=== PATIENT | female | born 1990 | race Caucasian/White ===

== ENCOUNTER → 2018-03-12 09:40 | Outpatient (CLI) | payer OTHER, MEDICAID, SELFPAY | PROVIDERS: Visit Provider Nurse Practitioner | DX: G56.03 Carpal tunnel syndrome, bilateral upper limbs (principal); M54.5 Low back pain; G89.29 Other chronic pain; F41.9 Anxiety disorder, unspecified; R20.2 Paresthesia of skin | CPT/HCPCS: 95886; 95911 ==

== ENCOUNTER 2018-07-15 11:47 | Emergency (ER) | payer OTHER, MEDICAID, SELFPAY ==
[2018-07-15 11:51] VITALS: BP 134/84; PULSE 101; RESP 20; TEMP 36.2; O2SAT 100
--- NOTE | 2018-07-15 14:53 | ED.SKABFB ---
HPI - Skin/Abscess/Foreign Bdy General Chief complaint: Skin/Abscess/Foreign Body Stated complaint: states lump left breast has ruptured Time Seen by Provider: 07/15/18 14:41 Source: patient Mode of arrival: ambulatory Limitations: no limitations History of Present Illness HPI narrative: Patient is otherwise healthy 28-year-old female here for evaluation of a lump under her left breast that has spontaneously drained. She states that she has felt the lump for the past couple weeks. She states that just over the past several days it has become painful. She is scheduled for an ultrasound later today ordered by her OB provider. She states that just within the past 24 hr the lump started to drain. No fevers. Has never had anything like this before. Related Data Home Medications Medication Instructions Recorded Confirmed buprenorphine 12 mg-naloxone 3 mg 1 film SL DAILY 07/10/18 07/15/18 sublingual film duloxetine 60 mg capsule,delayed 60 mg PO DAILY 07/10/18 07/15/18 release hydroxyzine pamoate 25 mg capsule 25 mg PO Q6-8H PRN 07/10/18 07/15/18 amoxicillin-pot clavulanate 1 tab PO BID 07/15/18 07/15/18 ibuprofen 1 tab PO Q4H PRN 07/15/18 07/15/18 naloxone [Narcan] 1 spray INTRANASAL DIRECTED 07/15/18 07/15/18 Allergies Allergy/AdvReac Type Severity Reaction Status Date / Time acetaminophen [From Vicodin] Allergy Mild BAD DREAMS Verified 07/10/18 13:40 hydrocodone [From Vicodin] Allergy Mild BAD DREAMS Verified 07/10/18 13:40 No Known Allergies Allergy Uncoded 01/28/18 12:13 Review of Systems Constitutional Denies fever(s) and Denies headache(s) ENT Ears, Nose, Mouth, and Throat: Denies headache(s) Cardiovascular Denies chest pain and Denies dyspnea Respiratory Denies dyspnea Gastrointestinal Gastrointestinal: Denies abdominal pain Integumentary/Breasts Comments: Draining lump under the left breast Neurologic Denies headache(s) [facility] Medical History Healthy adult (Acute) Surgical History No pertinent past surgical history (Acute) Social History Smoking Status: Current every day smoker Exam Initial Vital Signs Initial Vital Signs: Vital Signs Temperature 97.2 F L 07/15/18 11:51 Pulse Rate 101 H 07/15/18 11:51 Respiratory Rate 20 07/15/18 11:51 Blood Pressure 134/84 07/15/18 11:51 Pulse Oximetry 100 07/15/18 11:51 Const General: cooperative, healthy appearing, comfortable, well developed, well groomed and No acute distress Resp Effort & Inspection: normal respiratory effort Cardio Rate: regular rate Rhythm: regular rhythm Skin Other: Patient with a proximally 2 cm area of induration in the inferior aspect of the left breast at the inframammary fold. Has a 2 mm area of opening of the skin with drainage of serosanguineous material. No surrounding cellulitis. Neuro General: alert, awake and oriented x3 Extrem General: normal to inspection and capillary refill normal Psych Appearance: grossly normal and well kempt Course Vital Signs - 8 hr 07/15/18 11:51 07/15/18 15:03 Temperature 97.2 F L 98.3 F Pulse Rate 101 H 73 Respiratory Rate 20 16 Blood Pressure 134/84 116/69 Pulse Oximetry 100 98 MDM - Skin/Abscess/Foreign Bdy MDM Narrative Medical decision making narrative: Bedside ultrasound of the area does not show any drainable abscess. I do suspect that this was either a epidermal inclusion cyst or an abscess. It has spontaneously drained. I did not open the wound up any further. I informed the patient that she still could get the ultrasound later today if she wished however I stated that it probably would not show anything since it is already draining. I did inform her that this could be an epidermal inclusion cyst and that it may return. I informed her that if it was an abscess then drainage of the abscesses the treatment. She does not need any antibiotics for this. She was given return precautions. She expressed understanding and agreement with plan Discharge Plan Departure Patient Disposition: Home Clinical Impression: Breast lesion Discharge Date/Time: 07/15/18 15:03 Interventions: ED Discharge Assessment Last Done: 07/15/18 15:03 Activity Restrictions/Additional Instructions: It is up to you if you would like to continue with the ultrasound that she have scheduled for later today. The spot on the left breast is either an abscess or a cyst. It is draining which would be the treatment for both these issues. There was no indication to start to on antibiotics for this. I would recommend you follow-up with your OB doctor to discuss further treatment if needed. Prescriptions: No Action hydroxyzine pamoate 25 mg capsule 25 mg PO Q6-8H PRN (Reason: unknown) RF: 0 duloxetine 60 mg capsule,delayed release(DR/EC) 60 mg PO DAILY RF: 0 buprenorphine-naloxone [Suboxone] 12-3 mg film 1 film SL DAILY RF: 0 ibuprofen 800 mg tablet 1 tab PO Q4H PRN (Reason: pain) RF: 0 amoxicillin-pot clavulanate 875-125 mg tablet 1 tab PO BID RF: 0 naloxone [Narcan] 4 mg/actuation spray,non-aerosol 1 spray Intranasal DIRECTED RF: 0
[2018-07-15 15:03] VITALS: BP 116/69; PULSE 73; RESP 16; TEMP 36.8; O2SAT 98
== END 2018-07-15 15:03 | disposition home or self-care (01) ==
PROVIDERS: Emergency Provider Emergency Medicine; PCP Nurse Practitioner
DX: N64.9 Disorder of breast, unspecified (principal)
CPT/HCPCS: 99282

== ENCOUNTER → 2018-07-16 08:15 | Outpatient (CLI) | payer OTHER, MEDICAID, SELFPAY ==
--- NOTE | 2018-07-16 08:18 | DI.US.S_ITS ---
LIMITED ULTRASOUND OF LEFT BREAST: 07/16/2018 CLINICAL: Left breast lump with discoloration x 3 weeks. Draining for 1 day. No prior exams were available for comparison. Color flow and real-time ultrasound of the left breast 7 o'clock region were performed on the areas of interest. There is a 1.3 cm x 0.4 cm x 0.7 cm irregular cyst with an irregular internal wall within the skin of the left breast at 7 o'clock. This irregular cyst is hypoechoic with internal echoes. This correlates as palpated and with area of drainage. Color flow imaging demonstrates that there is no internal vascularity present. IMPRESSION: BENIGN There is no sonographic evidence of malignancy. The 1.3 cm x 0.4 cm x 0.7 cm irregular cyst within the skin of the left breast is consistent with a sebaceous cyst. Associated infection is not excluded. Recommend correlation with clinical exam and clinical followup to demonstrate resolution. This exam was interpreted at Station ID: [id number]. Electronically Signed By: Houston hernandez/:07/16/2018 08:56:59 letter sent: Clinical Evaluation Ultrasound BI-RADS: 2 Benign
== END ==
PROVIDERS: Family Provider Physician Assistant Medical; PCP Physician Assistant Medical; Visit Provider Nurse Practitioner Family
DX: N60.82 Other benign mammary dysplasias of left breast (principal)
CPT/HCPCS: 76642

== ENCOUNTER 2018-10-08 14:34 | Emergency (ER) | payer OTHER, MEDICAID, SELFPAY ==
[2018-10-08 14:47] VITALS: BP 125/88; PULSE 78; RESP 16; TEMP 36.7; O2SAT 100; BMI 24.1
--- NOTE | 2018-10-08 17:42 | ED_ITS ---
HPI - Recheck/Abnormal Lab/Rx <SANDOR Jackson - Last Filed: 10/08/18 21:04> General Chief Complaint: Recheck/Abnormal Lab/Rx Stated Complaint: major joint pains Time Seen by Provider: 10/08/18 16:23 Source: patient Mode of arrival: ambulatory Limitations: no limitations History of Present Illness HPI narrative: 28-year-old female with history of PTSD as everyday smoker here for complaint of a generalized joint pain over the past 6 months. She reports that she was seen for this by her primary care provider and was referred to Rheumatology as she states that her markers were elevated. She states that her primary care provider left the area and therefore rheumatology referral did not go through. She still has having pain into her joints. She states she has been prescribed Mobic for the discomfort. She reports that the Mobic helps at times for the discomfort. She denies any fevers or chills. No trauma to the joints area. She is ambulatory into the emergency room. She denies any stressors or relievers of her discomfort. She reports that she has got pain to her knees elbows and to her wrist and hands. Related Data Home Medications Medication Instructions Recorded Confirmed buprenorphine 12 mg-naloxone 3 mg 1 film SL DAILY 07/10/18 07/15/18 sublingual film duloxetine 60 mg capsule,delayed 60 mg PO DAILY 07/10/18 07/15/18 release hydroxyzine pamoate 25 mg capsule 25 mg PO Q6-8H PRN 07/10/18 07/15/18 amoxicillin-pot clavulanate 1 tab PO BID 07/15/18 07/15/18 ibuprofen 1 tab PO Q4H PRN 07/15/18 07/15/18 naloxone [Narcan] 1 spray INTRANASAL DIRECTED 07/15/18 07/15/18 Allergies Allergy/AdvReac Type Severity Reaction Status Date / Time acetaminophen [From Vicodin] Allergy Mild BAD DREAMS Verified 10/08/18 14:47 hydrocodone [From Vicodin] Allergy Mild BAD DREAMS Verified 10/08/18 14:47 Review of Systems <SANDOR Jackson - Last Filed: 10/08/18 21:04> Constitutional Denies chills, Denies fever(s), Denies lethargy and Denies weakness Eyes Denies change in vision, Denies eye discharge, Denies irritation and Denies loss of vision ENT Ears, Nose, Mouth, and Throat: Denies change in voice, Denies neck pain and Denies sore throat Cardiovascular Denies chest pain, Denies irregular heart rhythm, Denies lightheadedness, Denies palpitations, Denies dyspnea, Denies dyspnea on exertion and Denies orthopnea Respiratory Denies cough, Denies dyspnea, Denies dyspnea on exertion and Denies wheezing Gastrointestinal Gastrointestinal: Denies abdominal pain, Denies change in bowel habits, Denies diarrhea, Denies nausea and Denies vomiting Genitourinary Denies hematuria, Denies flank pain, Denies urinary incontinence and Denies urinary urgency Musculoskeletal Denies neck pain Comments: Generalized joint pain Integumentary/Breasts Denies pruritus, Denies erythema, Denies rash and Denies wounds Neurologic Denies confusion, Denies loss of vision and Denies weakness Psychiatric Denies anxiety, Denies confusion, Denies depression, Denies homicidal ideation and Denies suicidal ideation Endocrine Denies palpitations Hematologic/Lymphatic Denies easy bruising Allergic/Immunologic Denies wheezing Exam <SANDOR Jackson - Last Filed: 10/08/18 21:04> Initial Vital Signs Initial Vital Signs: Vital Signs Temperature 98.1 F 10/08/18 14:47 Pulse Rate 78 10/08/18 14:47 Respiratory Rate 16 10/08/18 14:47 Blood Pressure 125/88 10/08/18 14:47 Pulse Oximetry 100 10/08/18 14:47 Const General: cooperative and well developed Nutritional Appearance: well nourished Orientation: alert, awake, oriented x3 and not confused [facility] Mouth: oral mucosae normal and moist mucous membranes Eyes Conjunctivae: conjunctivae normal Sclera: sclerae normal Pupils: PERRL EOM: EOM intact bilaterally Resp Effort & Inspection: normal respiratory effort, able to speak in complete sentences, no respiratory distress and no use of accessory muscles Auscultation: clear to auscultation bilaterally, no rales, no rhonchi and no wheezes Cardio Rate: regular rate Rhythm: regular rhythm Heart Sounds: no click, no gallops, no murmurs and no rubs Pulses: normal peripheral pulses Skin General: no rashes or lesions noted, No jaundice and No petechiae Neuro General: alert, oriented x3, gait normal and no focal motor deficits Speech: speech normal Extrem Other: Full range of motion to all 4 extremities. No significant swelling into the major joints. No erythema. No increased warmth. Distal sensation is intact all 4 extremities. <Zen Trinidad DO - Last Filed: 10/08/18 21:54> Initial Vital Signs Initial Vital Signs: Vital Signs Temperature 98.1 F 10/08/18 14:47 Pulse Rate 78 10/08/18 14:47 Respiratory Rate 16 10/08/18 14:47 Blood Pressure 125/88 10/08/18 14:47 Pulse Oximetry 100 10/08/18 14:47 Course <SANDOR Jackson - Last Filed: 10/08/18 21:04> Vital Signs - 8 hr 10/08/18 14:47 10/08/18 17:45 Temperature 98.1 F Pulse Rate 78 82 Respiratory Rate 16 20 Blood Pressure 125/88 Blood Pressure [Left Arm] 127/79 Pulse Oximetry 100 100 <Zen Trinidad DO - Last Filed: 10/08/18 21:54> Vital Signs - 8 hr 10/08/18 14:47 10/08/18 17:45 Temperature 98.1 F Pulse Rate 78 82 Respiratory Rate 16 20 Blood Pressure 125/88 Blood Pressure [Left Arm] 127/79 Pulse Oximetry 100 100 MDM - Recheck/Abnormal Lab/Rx <SANDOR Jackson - Last Filed: 10/08/18 21:04> [facility] Narrative Medical decision making narrative: Due to chronic nature of a problem and patient's subjective report of elevated markers on her blood work and the past recommend that she follow up with Rheumatology for further evaluation as conservative therapy has not seem to have helped her. Will have her follow up with her primary care provider next week for re-evaluation and discussion for specialty referral. Continue using meloxicam as directed for discomfort. For any worsening symptoms return to the emergency room. Patient does not desire to have any blood work completed today Discharge Plan Departure Patient Disposition: Home Clinical Impression: Arthralgia Discharge Date/Time: 10/08/18 17:48 Interventions: ED Discharge Assessment Last Done: 10/08/18 17:48 Instructions: DI for Arthralgia Activity Restrictions/Additional Instructions: Due to chronic nature of a problem and recommend follow up with Rheumatology for further evaluation as conservative therapy has not helped. Follow up with her primary care provider next week for re-evaluation and discussion for specialty referral. Continue using meloxicam as directed for discomfort. For any worsening symptoms return to the emergency room. Patient does not desire to have any blood work completed today Prescriptions: No Action hydroxyzine pamoate 25 mg capsule 25 mg PO Q6-8H PRN (Reason: unknown) RF: 0 duloxetine 60 mg capsule,delayed release(DR/EC) 60 mg PO DAILY RF: 0 buprenorphine-naloxone [Suboxone] 12-3 mg film 1 film SL DAILY RF: 0 ibuprofen 800 mg tablet 1 tab PO Q4H PRN (Reason: pain) RF: 0 amoxicillin-pot clavulanate 875-125 mg tablet 1 tab PO BID RF: 0 naloxone [Narcan] 4 mg/actuation spray,non-aerosol 1 spray Intranasal DIRECTED RF: 0 Referrals: Gloria Sanchez ARNP [Primary Care Provider] - <Zen Trinidad DO - Last Filed: 10/08/18 21:54> Cosign ED Attending Starla Attestation: I was available for consultation during this patient's emergency department encounter
[2018-10-08 17:45] VITALS: BP 127/79; PULSE 82; RESP 20; O2SAT 100
== END 2018-10-08 17:48 | disposition home or self-care (01) ==
PROVIDERS: Emergency Provider Nurse Practitioner Family; PCP Nurse Practitioner
DX: M25.50 Pain in unspecified joint (principal)
CPT/HCPCS: 99282

== ENCOUNTER → 2018-11-25 10:12 | Outpatient (CLI) | payer OTHER, MEDICAID, SELFPAY | PROVIDERS: PCP Nurse Practitioner; Visit Provider Physician Assistant | DX: N89.8 Other specified noninflammatory disorders of vagina (principal) | CPT/HCPCS: 87210 ==

== ENCOUNTER 2018-11-29 08:24 | Emergency (ER) | payer OTHER, MEDICAID, SELFPAY ==
[2018-11-29] VITALS (13 sets, daily range): BP systolic 114–137; BP diastolic 63–83; PULSE 85–114; RESP 12–97; TEMP 36.6–36.7; O2SAT 16–98
--- NOTE | 2018-11-29 09:35 | DI.US.S_ITS ---
PROCEDURE: US PELVIC COMPLETE INDICATIONS: PELVIC PAIN POST REMOVAL OF RETAINED TAMPON TECHNIQUE: Real-time scanning was performed of the pelvic organs, with image documentation. Additional endovaginal scanning was necessary due to incomplete visualization of the adnexal and endometrial structures by transabdominal scanning. COMPARISON: None. FINDINGS: Transabdominal scanning: Limited scanning through the kidneys shows no hydronephrosis. No pathologic free abdominal or pelvic fluid. Endovaginal scanning: Uterus: Uterus is normal in size at 8.2 x 3.9 x 4.9 cm. appropriately positioned IUD Ovaries: Right ovary measures 4.6 x 1.4 x 2.6 cm and there is a 2.1 x 1.5 x 2.0 cm physiologic cyst or follicle. Left ovary measures 3.2 x 1.6 x 1.4 cm and is unremarkable IMPRESSION: Appropriately positioned IUD. Otherwise, unremarkable examination as above Dictated by: Charles Neil M.D. on 11/29/2018 at 11:42 Approved by: Charles Neil M.D. on 11/29/2018 at 11:44
--- NOTE | 2018-11-29 09:36 | ED_ITS ---
HPI - Abdominal Pain General Chief Complaint: Abdominal Pain Stated Complaint: STOMACH AND BACK PAIN,NOT ABLE TO URINATE Time Seen by Provider: 11/29/18 08:53 Source: patient Mode of arrival: ambulatory Limitations: no limitations History of Present Illness HPI narrative: This is a 28-year-old female comes to the ER with complaint of abdominal pain, fevers up to 102 F at home. Patient states the last couple days she has had increasing discomfort starting Friday continue yesterday. Patient states that she had some abdominal discomfort starting last 5 days she was seen on Friday. About 3 days afterwards her tampon fell out. She states it was a paced for probably 5 days. She had for on that was present. Her last menses was about a week and half ago. Patient states that she since then had increasing abdominal discomfort and flank pain bilaterally. She has been nauseated and vomiting overnight. She has not had any major issues with bowel movements. She has had some frequency and dysuria. She does have an IUD in place. She has had brownish vaginal discharge with and foul odor. Related Data Home Medications Medication Instructions Recorded Confirmed buprenorphine 12 mg-naloxone 3 mg 1 film SL DAILY 07/10/18 11/25/18 sublingual film ibuprofen 1 tab PO Q4H PRN 07/15/18 11/25/18 naloxone [Narcan] 1 spray INTRANASAL DIRECTED 07/15/18 11/25/18 meloxicam 15 mg tablet 15 mg PO DAILY 11/25/18 11/25/18 sertraline 100 mg tablet 200 mg PO DAILY 11/25/18 11/25/18 Previous Rx's Medication Instructions Recorded metronidazole 500 mg tablet 500 mg PO BID 7 Days #14 tab 11/25/18 doxycycline hyclate 100 mg PO BID #20 cap 11/29/18 metronidazole [Flagyl] 500 mg PO BID #28 tab 11/29/18 oxycodone-acetaminophen [Percocet] 1 tab PO Q4-6H PRN #10 tab 11/29/18 Allergies Allergy/AdvReac Type Severity Reaction Status Date / Time hydrocodone [From Vicodin] Allergy Mild BAD DREAMS Verified 11/29/18 08:36 Review of Systems Review of Systems ROS Unobtainable: All systems reviewed & are unremarkable except as noted in HPI and below Constitutional Reports chills, Reports fever(s), Denies lethargy and Denies weakness Gastrointestinal Gastrointestinal: Reports abdominal pain, Denies change in bowel habits, Denies constipation, Denies diarrhea, Reports nausea and Reports vomiting Genitourinary Reports as per HPI, Denies hematuria, Reports dysuria, Reports pelvic pain, Reports flank pain (Bilateral), Denies urinary incontinence, Reports urinary urgency, Reports vaginal discharge and Reports vaginal odor Integumentary/Breasts Denies rash Neurologic Denies weakness [facility] Medical History Healthy adult (Acute) Surgical History No pertinent past surgical history (Acute) Social History Smoking Status: Current every day smoker Social History Smoking Status: Current every day smoker alcohol intake: current substance use type: does not use Exam Narrative Exam Narrative: GENERAL: Alert and oriented x three, well-nourished, well- appearing female in moderate distress. HEENT: Head normocephalic, atraumatic, EOMI, pupils reactive, face symmetric, moist mucous membranes NECK: Supple, full range of motion CARDIOVASCULAR: Regular rate and rhythm without murmurs, rubs or gallops. RESPIRATORY: Breath sounds equal bilaterally, no wheezes rales or rhonchi. ABDOMEN: Soft, generalized tenderness. Normoactive bowel sounds all 4 quadrants. No guarding or rebound, rigidity, no mass. : Bilateral CVA tenderness. Female: external vaginal exam is normal, mild dark brown vaginal bleeding, thick brownish discharge, patient quite tender on speculum exam, positive cervical motion tenderness, patient has 1cm of ulceration that is whitish in discoloration on the cervix and 4-5 small punctate white spots, they do not appears raised or fluctuant, there is no bleeding from areas of ulceration noted, no drainage, mild adnexal tenderness, no mass. no enlarged uterus. Non- gravid. EXTREMITIES: Normal range of motion, no clubbing or edema. Neurovascularly intact NEUROLOGICAL: Cranial nerves II through XII grossly intact. Moving all extremities SKIN: Warm, dry, no petechiae, no rashes or lesions. Initial Vital Signs Initial Vital Signs: Vital Signs Temperature 97.9 F 11/29/18 08:33 Pulse Rate 110 H 11/29/18 08:33 Respiratory Rate 18 11/29/18 08:33 Blood Pressure 137/83 11/29/18 08:33 Pulse Oximetry 98 11/29/18 08:33 Course Orders Ordered: ED Orders 11/29/18 09:50 Blood Culture Stat Lactate (Lactic Acid) Stat 11/29/18 11:26 Urine Microscopic Stat 11/29/18 12:30 Chlamydia/Gonorrhea RNA (SWAB) Stat Genital Culture Stat Wet Prep Tric BV Venecia Stat Discontinued Medications Hydromorphone HCl (Dilaudid) 1 mg IV NOW ONE Stop: 11/29/18 12:29 Last Admin: 11/29/18 12:40 Dose: 1 mg Hydromorphone HCl (Dilaudid) 1 mg IV NOW ONE Stop: 11/29/18 14:25 Last Admin: 11/29/18 14:39 Dose: 1 mg Sodium Chloride (Normal Saline 0.9%) 1,000 mls @ 1,000 mls/hr IV BOLUS ONE Stop: 11/29/18 09:52 Last Infusion: 11/29/18 11:15 Dose: 0 mls/hr Admin: 11/29/18 09:42 Dose: 1,000 mls/hr Doxycycline Hyclate 100 mg/ (Sodium Chloride) 100 mls @ 100 mls/hr IV NOW ONE Stop: 11/29/18 12:30 Last Infusion: 11/29/18 15:32 Dose: 0 mls/hr Admin: 11/29/18 14:10 Dose: 100 mls/hr Cefotetan Disodium/Dextrose (Cefotan) 2 gm in 50 mls @ 100 mls/hr IV NOW ONE Stop: 11/29/18 12:58 Last Infusion: 11/29/18 14:08 Dose: 0 mls/hr Admin: 11/29/18 13:29 Dose: 100 mls/hr Ketorolac Tromethamine (Toradol) 30 mg IV NOW ONE Stop: 11/29/18 09:37 Last Admin: 11/29/18 09:43 Dose: 30 mg Morphine Sulfate (Morphine) 4 mg IV NOW ONE Stop: 11/29/18 11:30 Last Admin: 11/29/18 11:34 Dose: 4 mg Ondansetron HCl (Zofran) 4 mg IV NOW ONE Stop: 11/29/18 09:37 Last Admin: 11/29/18 09:43 Dose: 4 mg Vital Signs - 8 hr 11/29/18 11:00 11/29/18 11:34 11/29/18 12:09 Temperature 98.1 F 98.0 F Pulse Rate 97 H 96 H Respiratory Rate 12 Blood Pressure Blood Pressure [Right Arm] 128/78 119/75 Pulse Oximetry 98 97 11/29/18 12:30 11/29/18 13:00 11/29/18 13:30 Temperature Pulse Rate 100 H 92 H 94 H Respiratory Rate 15 17 16 Blood Pressure Blood Pressure [Right Arm] 126/69 Pulse Oximetry 97 96 97 11/29/18 14:00 11/29/18 14:30 11/29/18 15:00 Temperature Pulse Rate 92 H 95 H 114 H Respiratory Rate 13 97 H 19 Blood Pressure Blood Pressure [Right Arm] 114/63 127/80 127/80 Pulse Oximetry 97 16 L 98 11/29/18 15:53 Temperature Pulse Rate 91 H Respiratory Rate 16 Blood Pressure 127/80 Blood Pressure [Right Arm] Pulse Oximetry 98 MDM - Abdominal Pain Lab Data Result diagrams: 11/29/18 09:35 11/29/18 09:35 Lab Results 11/29/18 11/29/18 11/29/18 Range/Units 09:35 09:35 09:50 WBC 10.1 (4.5-11.0) X10^3/uL RBC 3.93 L (4.0-5.2) X10^6/uL Hgb 13.8 (12.0-16.0) g/dL Hct 39.5 (36-46) % MCV 100.6 H (80-100) fL MCH 35.1 H (26-34) PG MCHC 34.9 (30-36) % RDW 13.5 (11.6-14.8) % Plt Count 197 (150-400) X10^3/uL Neut % (Auto) 72.5 (50-75) % Lymph % (Auto) 17.3 L (25-40) % [place] % (Auto) 9.6 (3-14) % Eos % (Auto) 0.3 L (2-4) % Baso % (Auto) 0.3 (0-2) % Neut # (Auto) 7300 H (1143-5540) /uL Lymph # (Auto) 1800 (9471-6932) /uL [place] # (Auto) 1000 H (0-900) /uL Eos # (Auto) 0 (0-450) /uL Baso # (Auto) 0 (0-100) /uL Sodium 138 (137-145) mmol/L Potassium 3.7 (3.4-5.1) mmol/L Chloride 100 (98-107) mmol/L Carbon Dioxide 21 L (22-32) mmol/L BUN 5 L (7-17) mg/dL Creatinine 0.50 L (0.52-1.04) mg/dL Estimated GFR > 60.0 (>60) mL/min BUN/Creatinine Ratio 10.0 (6-22) Glucose 93 (70-100) mg/dL Lactate 0.5 L (0.7-2.1) mmol/L Calcium 8.9 (8.4-10.2) mg/dL Total Bilirubin 0.5 (0.2-1.3) mg/dL AST 45 H (14-36) IU/L ALT 66 H (9-52) IU/L Alkaline Phosphatase 103 (38-126) U/L Total Protein 7.6 (6.3-8.2) g/dL Albumin 4.2 (3.5-5.0) g/dL Globulin 3.4 (1.7-4.1) g/dL Albumin/Globulin Ratio 1.2 (1.0-2.8) Lipase 150 (23-300) U/L Urine RBC (0-5/HPF) Urine WBC (0-5/HPF) Ur Squamous Epith Cells Amorphous Sediment Urine Bacteria (None) Urine Mucus (Negative) Ur Culture Indicated? 11/29/18 Range/Units 11:26 WBC (4.5-11.0) X10^3/uL RBC (4.0-5.2) X10^6/uL Hgb (12.0-16.0) g/dL Hct (36-46) % MCV (80-100) fL MCH (26-34) PG MCHC (30-36) % RDW (11.6-14.8) % Plt Count (150-400) X10^3/uL Neut % (Auto) (50-75) % Lymph % (Auto) (25-40) % [place] % (Auto) (3-14) % Eos % (Auto) (2-4) % Baso % (Auto) (0-2) % Neut # (Auto) (1835-3832) /uL Lymph # (Auto) (0312-1913) /uL [place] # (Auto) (0-900) /uL Eos # (Auto) (0-450) /uL Baso # (Auto) (0-100) /uL Sodium (137-145) mmol/L Potassium (3.4-5.1) mmol/L Chloride (98-107) mmol/L Carbon Dioxide (22-32) mmol/L BUN (7-17) mg/dL Creatinine (0.52-1.04) mg/dL Estimated GFR (>60) mL/min BUN/Creatinine Ratio (6-22) Glucose (70-100) mg/dL Lactate (0.7-2.1) mmol/L Calcium (8.4-10.2) mg/dL Total Bilirubin (0.2-1.3) mg/dL AST (14-36) IU/L ALT (9-52) IU/L Alkaline Phosphatase (38-126) U/L Total Protein (6.3-8.2) g/dL Albumin (3.5-5.0) g/dL Globulin (1.7-4.1) g/dL Albumin/Globulin Ratio (1.0-2.8) Lipase (23-300) U/L Urine RBC 1-5/hpf (0-5/HPF) Urine WBC 0-1/hpf (0-5/HPF) Ur Squamous Epith Cells 5-10 /hpf H Amorphous Sediment 2+ Urine Bacteria Occasional (0-1) (None) Urine Mucus 1+ H (Negative) Ur Culture Indicated? Cult not indicated Point of care testing: Point of Care Testing Test Results Negative Urine Dip Bedside Urine Glucose Negative Bedside Urine Bilirubin - Negative Bedside Urine Ketone +++ 80 Urine Specific [place] 1.025 Bedside Urine Occult Blood +++ Bedside Urine pH 6.0 Bedside Urine Protein + 30 Bedside Urine Urobilinogen - Negative Bedside Urine Nitrite - Negative Bedside Urine Leukocytes - Negative Esterase MDM Narrative Medical decision making narrative: Recheck after medications, patient was improving. After pelvic US and exam patient is much more uncomfortable. Exam and labs discussed with Dr. Patel, recommends Flagyl oral if very tender intravaginally, follow up at end of week with office. Cultures sent today. After discussion with activated sludge operator on recheck patient is more comfortable she then mentioned she did have a LEEP procedure with Dr. Patel in the past and we discussed this may have been what I was visualizing on exam. Still continue to follow up with Dr. Patel, Terrance and Doxycycline and return if worsening. Discharge Plan Departure Patient Disposition: Home Clinical Impression: Acute pelvic inflammatory disease (PID), Cervical ulceration Discharge Date/Time: 11/29/18 15:58 Interventions: ED Discharge Assessment Last Done: 11/29/18 15:53 Instructions: DI for Pelvic Inflammatory Disease Activity Restrictions/Additional Instructions: Call to set up followup this week with FILM PRODUCER. Take antibiotics until they are completely gone. Do not drink alcohol while taking Flagyl/metronidazole, it will make you vomit. Take pain medication as needed, this medication can make you sleepy so do not drive, perform hazards activities or make any major decisions while taking it. Return to the ER for persistent fevers greater than 100.4, persistent vomiting, rapidly increasing abdominal pain, black or bloody stools, new rashes or other new or concerning symptoms. Prescriptions: New doxycycline hyclate 100 mg capsule 100 mg PO BID Qty: 20 RF: 0 metronidazole [Flagyl] 500 mg tablet 500 mg PO BID Qty: 28 RF: 0 oxycodone-acetaminophen [Percocet] 5-325 mg tablet 1 tab PO Q4-6H PRN (Reason: pain) Qty: 10 RF: 0 No Action sertraline 100 mg tablet 200 mg PO DAILY RF: 0 meloxicam 15 mg tablet 15 mg PO DAILY RF: 0 metronidazole 500 mg tablet 500 mg PO BID 7 Days Qty: 14 RF: 0 buprenorphine-naloxone [Suboxone] 12-3 mg film 1 film SL DAILY RF: 0 ibuprofen 800 mg tablet 1 tab PO Q4H PRN (Reason: pain) RF: 0 naloxone [Narcan] 4 mg/actuation spray,non-aerosol 1 spray Intranasal DIRECTED RF: 0 Referrals: Nina Patel MD [Physician] - Gloria Sanchez ARNP [Primary Care Provider] -
[2018-11-29 09:42] LABS: Add Manual Diff / Slide Review NO; Basophils Absolute Auto 0 /uL (0-100); Basophils Percent Auto 0.3 % (0-2); Eosinophils Absolute Auto 0 /uL (0-450); Eosinophils Percent Auto 0.3 % (2-4); Hematocrit 39.5 % (36-46); Hemoglobin 13.8 g/dL (12.0-16.0); Lymphocytes Absolute Auto 1800 /uL (1100-4500); Lymphocytes Percent Auto 17.3 % (25-40); Mean Corpuscular HGB Conc 34.9 % (30-36); Mean Corpuscular Hemoglobin 35.1 PG (26-34); Mean Corpuscular Volume 100.6 fL (80-100); Monocytes Absolute Auto 1000 /uL (0-900); Monocytes Percent Auto 9.6 % (3-14); Neutrophils Absolute Auto 7300 /uL (1500-7000); Neutrophils Percent Auto 72.5 % (50-75); Platelet Count 197 X10^3/uL (150-400); Red Blood Cell Count 3.93 X10^6/uL (4.0-5.2); Red Cell Distribution Width 13.5 % (11.6-14.8); White Blood Cell Count 10.1 X10^3/uL (4.5-11.0)
[2018-11-29] MEDS: SODIUM CHLORIDE 0.9% 1,000 ML 1000 ML IV (09:42)
[2018-11-29] MEDS: KETOROLAC 60 MG/2 ML VIAL 30 MG IV (09:43)
[2018-11-29] MEDS: ONDANSETRON 4 MG/2 ML INJ IV (09:43)
[2018-11-29 09:54] LABS: Alanine Aminotransferase 66 IU/L (9-52); Albumin 4.2 g/dL (3.5-5.0); Albumin Globulin Ratio 1.2 (1.0-2.8); Alkaline Phosphatase 103 U/L (38-126); Aspartate Aminotransferase 45 IU/L (14-36); Bilirubin Total 0.5 mg/dL (0.2-1.3); Blood Urea Nitrogen 5 mg/dL (7-17); Calcium 8.9 mg/dL (8.4-10.2); Carbon Dioxide 21 mmol/L (22-32); Chloride 100 mmol/L (98-107); Estimated Glomerular Filt Rate > 60.0 mL/min (>60); Globulin 3.4 g/dL (1.7-4.1); Glucose 93 mg/dL (70-100); HEMOLYSIS < 15 (0-50); Lipase 150 U/L (23-300); Potassium 3.7 mmol/L (3.4-5.1); Sodium 138 mmol/L (137-145); Total Protein 7.6 g/dL (6.3-8.2)
[2018-11-29 10:09] LABS: Lactate (Lactic Acid) 0.5 mmol/L (0.7-2.1)
[2018-11-29] MEDS: MORPHINE 4 MG/ML INJ IV (11:34)
[2018-11-29 11:56] LABS: RBC Urine 1-5/HPF (0-5/HPF); Squamous Epithelial Cell Urine 5-10 /HPF; WBC Urine 0-1/HPF (0-5/HPF)
[2018-11-29 11:57] LABS: Amorphous Sediment Urine 2+; Bacteria Urine Occasional (0-1); Culture Indicated Urine Cult Not Indicated; Mucus Urine 1+ (Negative)
--- NOTE | 2018-11-29 12:00 | PC.NURSE ---
Pt' states her last menstrual period was about 2 weeks ago, last week on 11/25/18 she began experiencing symptoms: fevers, intermittent nausea and vomiting, abdominal pain, brown-red vaginal discharge, difficulty and burning when urinating, and pain during intercourse. On 11/27/18 she coughed and the tampon came out which she had forgotten for unknown length of time possibly over a week and a half. She went to see her PCP on 11/26/18 where she was prescribed an antibiotic gel for a vaginal infection, she used it all with no relief. She does have a new sexual partner and is concerned about STD's, denies , and states she uses a Mirena IUD. Pain is located in central abdomen and vaginally, some relief with a warm compress.
[2018-11-29] MEDS: HYDROMORPHONE 1 MG INJ IV ×2 (12:40→14:39)
[2018-11-29] MEDS: CEFOTETAN 2 GM/50 ML PIGGYBACK IV (13:29)
[2018-11-29] MEDS: DOXYCYCLINE 100 MG in SODIUM CHLORIDE 0.9% 100 ML IV (14:10)
--- NOTE | 2018-11-29 15:43 | PC.NURSE ---
I agree with all assessments and treatments completed by the Student nurse.
== END 2018-11-29 15:58 | disposition home or self-care (01) ==
PROVIDERS: Emergency Provider Emergency Medicine; PCP Nurse Practitioner
DX: R10.9 Unspecified abdominal pain (principal)
CPT/HCPCS: 36415; 36591; 76830; 76856; 80053; 81003; 81015; 81025; 83605; 83690; 85025; 87040; 87070; 87077; 87147; 87205; 87210; 87491; 87591; 99285; J1170; J1885; J2270; J2405

== ENCOUNTER → 2018-11-30 10:03 | Outpatient (CLI) | payer OTHER, MEDICAID, SELFPAY | PROVIDERS: PCP Nurse Practitioner; Visit Provider Specialist | DX: N73.0 Acute parametritis and pelvic cellulitis (principal) | CPT/HCPCS: 87255 ==

== ENCOUNTER 2018-11-30 10:23 | Inpatient (IN) | payer OTHER, MEDICAID, SELFPAY ==
[2018-11-30 10:55] VITALS: BMI 20.8
[2018-11-30 11:50] VITALS: BP 139/88; PULSE 82; RESP 18; TEMP 36.7; O2SAT 99
[2018-11-30] MEDS: DEXTROSE 5%-0.9% NS 1,000 ML 100 ML IV ×2 (11:52→22:18)
[2018-11-30 11:55] LABS: Add Manual Diff / Slide Review NO; Basophils Absolute Auto 100 /uL (0-100); Basophils Percent Auto 0.6 % (0-2); Eosinophils Absolute Auto 100 /uL (0-450); Eosinophils Percent Auto 0.5 % (2-4); Hemoglobin 13.1 g/dL (12.0-16.0); Lymphocytes Absolute Auto 2000 /uL (1100-4500); Mean Corpuscular HGB Conc 36.5 % (30-36); Mean Corpuscular Hemoglobin 35.2 PG (26-34); Mean Corpuscular Volume 96.5 fL (80-100); Monocytes Absolute Auto 800 /uL (0-900); Monocytes Percent Auto 8.1 % (3-14); Neutrophils Absolute Auto 6800 /uL (1500-7000); Neutrophils Percent Auto 69.8 % (50-75); Platelet Count 234 X10^3/uL (150-400); Red Blood Cell Count 3.73 X10^6/uL (4.0-5.2); Red Cell Distribution Width 13.2 % (11.6-14.8); White Blood Cell Count 9.7 X10^3/uL (4.5-11.0)
[2018-11-30] MEDS: ONDANSETRON 4 MG/2 ML INJ IV (11:55)
[2018-11-30] MEDS: HYDROMORPHONE 1 MG INJ IV (11:59)
[2018-11-30] MEDS: PENICILLIN G POTASSIUM 3,000,000 UNIT/50 ML FROZ.PIGGY 100 UNIT IV ×3 (12:17→22:04)
--- NOTE | 2018-11-30 12:54 | PC.NURSE ---
Addendum entered by Jessie Lombardi R.N. 11/30/18 13:03: PT OWN MEDS - gathered pt own meds and sent to pharmacy. Original Note: ADMISSION - arrived as direct admit, pt is clutching lower abd, tearful, states pain 8-10/10, oriented to room, pt did experience onset nausea and had emesis approx 50ml pale green fluid, when iv started, admin 4mg iv zofran and then 1mg iv dilaudid, was given warm blankets for lower abd, nausea did improve, states pain continues 6 on scale 0/10.
--- NOTE | 2018-11-30 13:00 | PM.GYNHP.1 ---
History of Present Illness Reason for admission: pelvic inflammatory disease Narrative: Radha Kaba is a 28 year old female admitted for possible PID. Patient was seen at the walk-in clinic on 11/25 and in the emergency room on 11/28. She is having increasing abdominal pain unrelieved by medications and outpatient antibiotics. [facility] Social History household members: none Smoking Status: Current every day smoker alcohol intake: current substance use type: does not use Meds Home Medications Medication Instructions Recorded Confirmed Type buprenorphine 12 mg-naloxone 3 mg 1 film SL DAILY 07/10/18 11/30/18 History sublingual film ibuprofen 1 tab PO Q4H PRN 07/15/18 11/30/18 History naloxone [Narcan] 1 spray INTRANASAL DIRECTED 07/15/18 11/30/18 History meloxicam 15 mg tablet 15 mg PO DAILY 11/25/18 11/30/18 History sertraline 100 mg tablet 200 mg PO DAILY 11/25/18 11/30/18 History doxycycline hyclate 100 mg PO BID #20 cap 11/29/18 11/30/18 Rx metronidazole [Flagyl] 500 mg PO BID #28 tab 11/29/18 11/30/18 Rx oxycodone-acetaminophen [Percocet] 1 tab PO Q4HR PRN 11/30/18 11/30/18 History Allergies Allergy/AdvReac Type Severity Reaction Status Date / Time hydrocodone [From Vicodin] Allergy Mild BAD DREAMS Verified 11/30/18 09:56 Review of Systems Review of Systems Patient complaining of increasing abdominal pain, pain with urinating, extreme pain with bowel movements, nausea and vomiting. Exam Narrative Exam Narrative: HEENT exam within normal limits. Lungs are clear to auscultation percussion. Heart is regular rate and rhythm no S3-S4 or murmurs. Abdomen is soft with tenderness throughout the abdomen. Patient has pustular lesions on her vulva. Speculum exam has a bloody pus appearing discharge. She has lesions on her cervix with a culture done to rule out possible herpes. Patient's IUD strings were grasped and the IUD removed. Patient does not have any uterine enlargement. No adnexal masses. But tenderness with palpation. Extremities without edema and nontender Objective Labs Result Diagrams: 11/30/18 11:20 Labs: Laboratory Results - last 24 hr 02/11/19 11:20 WBC 9.7 RBC 3.73 L Hgb 13.1 Hct 36.0 MCV 96.5 D MCH 35.2 H MCHC 36.5 H RDW 13.2 Plt Count 234 Neut % (Auto) 69.8 Lymph % (Auto) 21.0 L [place] % (Auto) 8.1 Eos % (Auto) 0.5 L Baso % (Auto) 0.6 Neut # (Auto) 6800 Lymph # (Auto) 2000 [place] # (Auto) 800 Eos # (Auto) 100 Baso # (Auto) 100 Assessment & Plan Assessment Narrative: Patient with worsening abdominal pain and vaginal lesions despite outpatient antibiotics. Possibility of PID. Patient's IUD was removed. GC and chlamydia cultures are pending. She has a large the growth of group B strep from her vagina. She had a wet prep on 11/25 that did not reveal any yeast or Trichomonas and small number of clue cells. Symptoms started after patient inadvertently left a tampon in place for 5 days. It is possible the patient has HSV. Patient was on Suboxone until 2 days ago. This likely is affecting her ability to deal with pain. Plan Narrative: Patient was admitted for IV fluids, IV antibiotics, IV pain medicine. Will start on acyclovir. Continue sertraline. Quality VTE Deep Vein Thrombosis/Pulmonary Embolism Present on Admission: No
[2018-11-30] MEDS: ACETAMINOPHEN 325 MG TABLET 650 MG PO ×2 (13:27→19:56)
[2018-11-30] MEDS: ACYCLOVIR 400 MG TABLET 800 MG PO ×3 (13:50→22:07)
[2018-11-30 15:15] VITALS: BP 151/92; PULSE 78; RESP 18; TEMP 36.9; O2SAT 99
[2018-11-30 17:00] VITALS: O2SAT 97
[2018-11-30] MEDS: LIDOCAINE JELLY 2% 5 ML 1 APPLIC TOP (17:00)
[2018-11-30] MEDS: IBUPROFEN 600 MG TABLET PO (18:43)
[2018-11-30 19:45] VITALS: BP 126/87; PULSE 88; RESP 18; TEMP 36.7; O2SAT 98
[2018-11-30] MEDS: SERTRALINE 50 MG TABLET 200 MG PO (22:05)
[2018-11-30] MEDS: DOXYCYCLINE HYCLATE 100 MG TABLET PO (22:06)
[2018-11-30] MEDS: metroNIDAZOLE 500 MG TABLET PO (22:07)
[2018-11-30] MEDS: diphenhydrAMINE 25 MG TABLET PO (22:07)
[2018-11-30] MEDS: HYDROMORPHONE PCA (6MG/30ML) 6 MG/30 ML PCA.VIAL IV (22:08)
[2018-11-30 23:30] VITALS: BP 114/69; PULSE 83; RESP 16; TEMP 36.6; O2SAT 96
[2018-11-30 23:45] VITALS: O2SAT 96
[2018-12-01] VITALS (8 sets, daily range): BP systolic 120–129; BP diastolic 72–87; PULSE 69–87; RESP 16; TEMP 36.4–36.7; O2SAT 94–98
[2018-12-01] MEDS: IBUPROFEN 600 MG TABLET PO ×4 (00:41→18:14)
[2018-12-01] MEDS: PENICILLIN G POTASSIUM 3,000,000 UNIT/50 ML FROZ.PIGGY 100 UNIT IV ×5 (04:41→20:11)
--- NOTE | 2018-12-01 04:51 | PC.NURSE ---
Shift Note: Pt missed scheduled dose of Penicillin G despite documentation per DEC. 2200 dose was scanned and hung but IV pump was not initiated. Found by fast food shift supervisor when initiating next schedule dose. Nurse Coordinator Natalya notified of situation. Will notify provider in AM.
[2018-12-01] MEDS: ACYCLOVIR 400 MG TABLET 800 MG PO ×5 (05:47→21:57)
--- NOTE | 2018-12-01 08:06 | PC.NURSE ---
Addendum entered by Jessie Lombardi R.N. 12/01/18 10:54: GI - placed nicotine patch, pt did not eat much breakfast, some underlying nausea, jennifer few sips, declines an antiemetic at this time. Original Note: Addendum entered by Jessie Lombardi R.N. 12/01/18 10:08: AMBULATION - pt req ambul, then stated wanted to go downstairs, on further questioning, states wanted to go out to smoke, informed pt of no smoking policy and that she cannot leave the 2nd floor, as she has district ranger, if she tries to leave floor, iv will be removed and pt discharged ama, she did agree to a nicotine patch and call placed to in for Dr. Patel today, the nurse will req order. Original Note: AM NOTE - lying bed, states some headache discomfort, discussed medications and ice pack applied head, lower abd and vaginal discomfort 4-5 on scale 0/10, describes vag burning discomfort, does have lidocaine gel, provides some relief, using district ranger dilaudid 0.2/10/6mg, does have menses, has pads and wipes for pericare, enc oob later am to chair.
[2018-12-01] MEDS: DEXTROSE 5%-0.9% NS 1,000 ML 100 ML IV ×2 (08:12→20:08)
[2018-12-01] MEDS: DOXYCYCLINE HYCLATE 100 MG TABLET PO ×2 (08:13→21:58)
[2018-12-01] MEDS: ACETAMINOPHEN 325 MG TABLET 650 MG PO ×3 (08:13→22:03)
[2018-12-01] MEDS: metroNIDAZOLE 500 MG TABLET PO ×2 (08:14→21:58)
[2018-12-01] MEDS: NICOTINE 14 PATCH 14 MG TOP (10:47)
--- NOTE | 2018-12-01 11:16 | P.PN_ITS ---
Subjective Date Patient Seen: 12/01/18 Time Patient Seen: 11:14 Interval history: Patient is hospital day number two for possible pelvic inflammatory disease. Patient states her nausea is better but she still has some. The pain is somewhat improved. She overall feels better because she did get some sleep last night. She still has burning when she urinates and and wipes. The xylocaine did not help with her discomfort. Exam Vital Signs (past 8 hours): - 12/01/18 04:40 12/01/18 07:55 12/01/18 09:23 Temperature 97.9 F 97.6 F Pulse Rate 76 69 Respiratory Rate 16 16 Blood Pressure 129/72 127/73 Pulse Oximetry 98 97 95 Oxygen Delivery Method Room Air Oxygen Flow Rate 0 Narrative Exam Narrative: Patient's abdomen is soft but continues to be tender. Extremities without edema and nontender. Objective Labs Result Diagrams: 11/30/18 11:20 Labs: Laboratory Results - last 24 hr 11/30/18 11:20 WBC 9.7 RBC 3.73 L Hgb 13.1 Hct 36.0 MCV 96.5 D MCH 35.2 H MCHC 36.5 H RDW 13.2 Plt Count 234 Neut % (Auto) 69.8 Lymph % (Auto) 21.0 L [place] % (Auto) 8.1 Eos % (Auto) 0.5 L Baso % (Auto) 0.6 Neut # (Auto) 6800 Lymph # (Auto) 2000 [place] # (Auto) 800 Eos # (Auto) 100 Baso # (Auto) 100 Assessment & Plan Assessment Narrative: Patient with abdominal pain and vulvar and vaginal lesions requiring IV antibiotics and pain medicine. Unclear she has PID, primary herpes or just severe vaginitis. Patient has remained afebrile so far and a normal white count. Plan Narrative: Awaiting cultures. Continue IV penicillin an oral metronidazole and doxycycline as well as acyclovir. Hopefully switch to oral meds tomorrow at with home later tomorrow. Quality VTE Deep Vein Thrombosis/Pulmonary Embolism Present on Admission: No
[2018-12-01] MEDS: ONDANSETRON 4 MG/2 ML INJ IV (12:28)
[2018-12-01] MEDS: HYDROMORPHONE PCA (6MG/30ML) 6 MG/30 ML PCA.VIAL 32 MG IV (13:52)
[2018-12-01] MEDS: LIDOCAINE JELLY 2% 5 ML 1 APPLIC TOP (14:18)
[2018-12-01] MEDS: HYDROMORPHONE PCA (6MG/30ML) 6 MG/30 ML PCA.VIAL IV (20:30)
[2018-12-01] MEDS: SERTRALINE 50 MG TABLET 200 MG PO (21:58)
[2018-12-01] MEDS: diphenhydrAMINE 25 MG TABLET PO (21:59)
--- NOTE | 2018-12-01 23:06 | PC.NURSE ---
Addendum entered by Brittani Jimenez R.N. 12/02/18 01:20: 2300- pt used 7.6 mg on nelson shift of RN LPN CNA Original Note: 1500- assumed care of pt from outgoing shift. Pt awake and alert. Pt complains her IV is hurting a bit. checked this was ok. Pt has RN LPN CNA going. Pt states this helps with the pain for a while. Pt reports having a bad headache and given prns for this. Pt requests higher doses of RN LPN CNA. paged and refused. updated pt. Pt uses call light. went for a walk with me and did well. Pt reports that her hips and back hurt still so sat down after one loop around [facility] nurse station. scds discussed and pt states that she is ok to wear them. will apply then when pt goes to bed. Pt uses br. up ambulatory in room. came in for a bit and stayed with pt. pt threw up when dinner came. pt didn't want much else after that. Pt given toast and cranberry juice later on in the shift and some apple sauce. did ok with this. Pt reports that she is bleeding. and is worried that she is bleeding while she pees. discussed this with nicki. pt has pad on. and goes through 3 a day about. pt stated she started bleeding about 5 days ago. and it has gotten a big heavier since then. Pt calls and waits for assistance. will continue to monitor.
[2018-12-02] VITALS (9 sets, daily range): BP systolic 117–145; BP diastolic 76–100; PULSE 74–83; RESP 14–16; TEMP 36.6–37.1; O2SAT 94–100
[2018-12-02] MEDS: IBUPROFEN 600 MG TABLET PO ×4 (00:31→17:49)
[2018-12-02] MEDS: PENICILLIN G POTASSIUM 3,000,000 UNIT/50 ML FROZ.PIGGY 100 UNIT IV (00:32)
[2018-12-02] MEDS: HYDROMORPHONE PCA (6MG/30ML) 6 MG/30 ML PCA.VIAL IV ×2 (02:52→08:51)
[2018-12-02] MEDS: PENICILLIN G POTASSIUM 3,000,000 UNIT/50 ML FROZ.PIGGY 50 UNIT IV (04:58)
[2018-12-02] MEDS: ACETAMINOPHEN 325 MG TABLET 650 MG PO (05:59)
[2018-12-02] MEDS: ACYCLOVIR 400 MG TABLET 800 MG PO ×5 (06:44→21:20)
--- NOTE | 2018-12-02 08:45 | PC.NURSE ---
0300 Assumed care of Pt, denies nausea at present. Reports professor of environmental studies is not enough for pain control. Pt appears to have c/o m/skel pain. Discussed transition to PO pain control. Pt doesnt care for this POC and would like to speak with Dr in AM. Reassured. Stretching and ambulation encouraged. Up to BR. Warm compress provided.
--- NOTE | 2018-12-02 08:53 | PC.NURSE ---
Addendum entered by Serena Gale R.N. 12/02/18 14:42: Pt reporting that pain remains uncontrolled. Education provided about expected pain with substance abuse Hx Pt is frustrated by this response. DR Patel into see Pt and gave same update Original Note: Addendum entered by Serena Gale R.N. 12/02/18 10:14: Pt has started PO Percocet and SCHOOL TRANSPORTATION DIRECTOR d/cd shortly after. Will monitor for pain control status. Original Note: 0600 SCHOOL TRANSPORTATION DIRECTOR cleared for 6.9 mg of Dilaudid. MAR shows order d/c'd. Clarification with Dr Patel, switching to PO pain control in hopes of d/c planning.
[2018-12-02] MEDS: NICOTINE 14 PATCH 14 MG TOP (09:00)
[2018-12-02] MEDS: OXYCODONE/ACETAMINOPHEN 5/325 TABLET 2 TAB PO ×2 (09:36→13:29)
[2018-12-02] MEDS: metroNIDAZOLE 500 MG TABLET PO ×2 (12:37→21:19)
[2018-12-02] MEDS: DOXYCYCLINE HYCLATE 100 MG TABLET PO ×2 (12:37→21:19)
--- NOTE | 2018-12-02 14:27 | PM.PN.1 ---
Subjective Date Patient Seen: 12/02/18 Time Patient Seen: 14:27 Interval history: Possible pelvic inflammatory disease. Patient states she is not doing as well today as she did yesterday. She has more pain and has had to take nausea medication. She is complaining of bleeding when she urinates and when she had a bowel movement. However she did have her IUD removed on Friday so not unusual to have bleeding now post IUD removal. Patient had a urine tested on the in the emergency room and did not have evidence of infection. Patient does not feel she can go home today. Exam Vital Signs (past 8 hours): - 12/02/18 07:00 12/02/18 08:00 12/02/18 11:50 Temperature 97.9 F 98 F Pulse Rate 79 81 Respiratory Rate 16 16 Blood Pressure 118/76 131/77 Pulse Oximetry 96 99 98 Oxygen Delivery Method Room Air Oxygen Flow Rate 0 Narrative Exam Narrative: Patient's abdomen is soft with continued tenderness to palpation without rebound. Her vulva is improved without evidence of the prior pustules. Extremities without edema nontender. Objective Labs Result Diagrams: 11/30/18 11:20 Assessment & Plan Assessment & Plan narrative: Severe abdominal pain with possible PID. Cultures are still pending. Patient switched off of IV fluids and IV antibiotics. She is on oral medications but continues with nausea and pain. Will discharge in a.m. unless her symptoms worsen. Quality VTE Deep Vein Thrombosis/Pulmonary Embolism Present on Admission: No
--- NOTE | 2018-12-02 16:49 | PC.NURSE ---
pain upon physical assessment at 1620 pt states pain 8/10 to lower abdomen. reviewed pt's pain medication schedule with her. warm compress provided for comfort. non-verbal cues indicate 2/10 with palpation. no bleeding seen on thomas-pad (pt states was changed this AM). tolerating PO intake. per pt's request, above information relayed to via telephone. No new orders. will continue with PRN medication as per DEC.
[2018-12-02] MEDS: HYDROMORPHONE 2 MG TABLET 4 MG PO ×2 (17:08→21:18)
[2018-12-02] MEDS: ONDANSETRON 4 MG ODT SL (18:03)
[2018-12-02] MEDS: SERTRALINE 50 MG TABLET 200 MG PO (21:19)
[2018-12-02] MEDS: diphenhydrAMINE 25 MG TABLET PO (21:50)
[2018-12-03] MEDS: IBUPROFEN 600 MG TABLET PO ×2 (00:16→05:47)
[2018-12-03 00:25] VITALS: BP 142/85; PULSE 64; RESP 20; TEMP 36.6; O2SAT 98
[2018-12-03] MEDS: ONDANSETRON 4 MG ODT SL ×2 (00:27→11:35)
[2018-12-03 00:32] VITALS: O2SAT 98
--- NOTE | 2018-12-03 00:38 | PC.NURSE ---
Addendum entered by Mely Walton R.N. 12/03/18 05:51: Has slept most of shift. States pain is 5/10 this morning and, again, being very dramatic in actions/sounds when staff in room. Medicated with scheduled Motrin and warm blanket provided to abdomen for comfort. Original Note: Addendum entered by Mely Walton R.N. 12/03/18 01:45: States pain in lower abdomen is currently 7/10; medicated with Dilaudid. Up to bathroom and had small amount yellow/green liquids stool. Original Note: Patient sleeping at shift changed and now awakened for scheduled Motrin. Prior to waking was lying quietly with FLACC of 0. Once wakened became very dramatic, complaining of lower abdominal pain, nausea and just don't feel good. Is alert and oriented. Breath sounds CTA with RA sat of 98%. HRR with BP mildly elevated at 142/85. Medicated with SL Zofran for nausea; no emesis. BT present and abdomen is soft but states pain is 5/10; given scheduled Motrin and warm blanket applied for comfort. States she has dysuria; urine is clear yellow. Pustular vulvar lesions. Independent with mobility. Agreeable to having SCD's applied. Fall risk score is moderate.
[2018-12-03] MEDS: HYDROMORPHONE 2 MG TABLET 4 MG PO ×3 (01:44→11:34)
[2018-12-03 05:06] VITALS: BP 138/79; PULSE 56; RESP 20; TEMP 36.8; O2SAT 100
[2018-12-03] MEDS: ACYCLOVIR 400 MG TABLET 800 MG PO ×2 (05:46→11:06)
[2018-12-03 05:52] LABS: Add Manual Diff / Slide Review NO; Basophils Absolute Auto 100 /uL (0-100); Basophils Percent Auto 0.4 % (0-2); Eosinophils Absolute Auto 0 /uL (0-450); Eosinophils Percent Auto 0.2 % (2-4); Hematocrit 37.3 % (36-46); Lymphocytes Absolute Auto 3000 /uL (1100-4500); Lymphocytes Percent Auto 23.8 % (25-40); Mean Corpuscular HGB Conc 34.9 % (30-36); Mean Corpuscular Hemoglobin 34.5 PG (26-34); Mean Corpuscular Volume 99.1 fL (80-100); Monocytes Absolute Auto 800 /uL (0-900); Monocytes Percent Auto 6.1 % (3-14); Neutrophils Absolute Auto 8900 /uL (1500-7000); Neutrophils Percent Auto 69.5 % (50-75); Platelet Count 395 X10^3/uL (150-400); Red Blood Cell Count 3.76 X10^6/uL (4.0-5.2); Red Cell Distribution Width 13.1 % (11.6-14.8); White Blood Cell Count 12.8 X10^3/uL (4.5-11.0)
[2018-12-03 06:02] LABS: Alanine Aminotransferase 43 IU/L (9-52); Albumin 3.6 g/dL (3.5-5.0); Albumin Globulin Ratio 1.1 (1.0-2.8); Alkaline Phosphatase 80 U/L (38-126); Aspartate Aminotransferase 30 IU/L (14-36); Bilirubin Total 0.4 mg/dL (0.2-1.3); Blood Urea Nitrogen 6 mg/dL (7-17); Carbon Dioxide 28 mmol/L (22-32); Chloride 98 mmol/L (98-107); Estimated Glomerular Filt Rate > 60.0 mL/min (>60); Globulin 3.2 g/dL (1.7-4.1); Glucose 129 mg/dL (70-100); HEMOLYSIS < 15 (0-50); Potassium 3.4 mmol/L (3.4-5.1); Sodium 136 mmol/L (137-145); Total Protein 6.8 g/dL (6.3-8.2)
[2018-12-03 07:57] VITALS: BP 131/79; PULSE 61; RESP 16; TEMP 36.7; O2SAT 99
--- NOTE | 2018-12-03 08:02 | P.DS_ITS ---
History of Present Illness Date Patient Seen: 12/03/18 Time Patient Seen: 07:54 Chief complaint: Abdominal and vaginal pain Narrative: Patient was admitted for IV antibiotics and pain control for abdominal and vaginal pain, possible PID. Also possibility of primary herpes infection. Discharge Providers Date of admission: 11/30/18 10:23 Primary care physician: SANDOR Clarke Discharge provider: Nina Patel MD Discharge Date: 12/03/18 Summary Discharge Diagnosis: Pelvic inflammatory disease Hospital Course: Patient was admitted for IV antibiotics and pain control for abdominal and vaginal pain possible PID. Also possibility of primary herpes infection. The patients only culture returns so far was a vaginal culture for group B strep. GC and Chlamydia as well as herpes cultures are pending. Since admission the patient has had no fevers. Her white count was normal 1st 2 draws slightly elevated at 12.8 today. 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 Patient did not feel she did well with Percocet oral so switched to p.o. Dilaudid which she said worked better for her. Patient continues to have abdominal pain. She has had bowel movements. She has had vaginal bleeding but she had her IUD removed on 11/30/2018 so most likely responsible for this. Patient will be discharged home to continue her antibiotics orally. Will change treatment if her cultures come back requiring a change in antibiotics. Exam Vital Signs (past 8 hours): - 12/03/18 00:25 12/03/18 00:32 12/03/18 05:06 Temperature 97.8 F 98.2 F Pulse Rate 64 56 L Respiratory Rate 20 20 Blood Pressure 142/85 H 138/79 Pulse Oximetry 98 98 100 Oxygen Delivery Method Room Air Oxygen Flow Rate 0 Narrative Exam Narrative: Patient's abdomen is soft, with continued mild tenderness. The patient's vulva the pustules prior seen have mostly resolved. Vaginal exam was not performed. Extremities are without edema and nontender. Objective Labs Result Diagrams: 12/03/18 05:42 12/03/18 05:42 Labs: Laboratory Results - last 24 hr 12/03/18 12/03/18 05:42 05:42 WBC 12.8 H RBC 3.76 L Hgb 13.0 Hct 37.3 MCV 99.1 MCH 34.5 H MCHC 34.9 RDW 13.1 Plt Count 395 Neut % (Auto) 69.5 Lymph % (Auto) 23.8 L [place] % (Auto) 6.1 Eos % (Auto) 0.2 L Baso % (Auto) 0.4 Neut # (Auto) 8900 H Lymph # (Auto) 3000 [place] # (Auto) 800 Eos # (Auto) 0 Baso # (Auto) 100 Sodium 136 L Potassium 3.4 Chloride 98 Carbon Dioxide 28 BUN 6 L Creatinine 0.40 L Estimated GFR > 60.0 BUN/Creatinine Ratio 15.0 Glucose 129 H Calcium 9.0 Total Bilirubin 0.4 AST 30 ALT 43 Alkaline Phosphatase 80 Total Protein 6.8 Albumin 3.6 Globulin 3.2 Albumin/Globulin Ratio 1.1 Discharge Plan Discharge Plan Patient Disposition: Home Discharge Med Rec/Prescriptions Prescriptions: New valacyclovir 1 gram tablet 1,000 mg PO BID Qty: 14 RF: 0 hydromorphone 2 mg Tablet 4 mg PO Q4HR PRN (Reason: Pain, Severe (7-10)) Qty: 30 RF: 0 docusate sodium 100 mg Capsule 100 mg PO BID PRN (Reason: Constipation) Qty: 10 RF: 0 ondansetron 4 mg Tablet,Disintegrating 4 mg Sublingual Q6HR PRN (Reason: Nausea) Qty: 10 RF: 0 Continued sertraline 100 mg tablet 200 mg PO DAILY RF: 0 ibuprofen 800 mg tablet 1 tab PO Q4H PRN (Reason: pain) RF: 0 naloxone 4 mg/actuation spray,non-aerosol 1 spray Intranasal DIRECTED RF: 0 doxycycline hyclate 100 mg capsule 100 mg PO BID Qty: 20 RF: 0 metronidazole [Flagyl] 500 mg tablet 500 mg PO BID Qty: 28 RF: 0 Discontinued meloxicam 15 mg tablet 15 mg PO DAILY RF: 0 buprenorphine-naloxone [Suboxone] 12-3 mg film 1 film SL DAILY RF: 0 oxycodone-acetaminophen [Percocet] 5-325 mg tablet 1 tab PO Q4HR PRN (Reason: Pain, Moderate) RF: 0 Follow up/Referrals: Nina Patel MD [Physician] - 1 Week (f/u hospitalization) Gloria Sanchez ARNP [Primary Care Provider] - Provider Discharge Instructions Diet: Regular Activity: No restrictions Skin/Wound/Dressing Care Report to your healthcare provider any signs of infection, such as:: chills, fever Discharge Data Primary Care Provider: Gloria Sanchez Attending Provider: Nina Patel Admit Date/Time: 11/30/18 10:23 Quality VTE Deep Vein Thrombosis/Pulmonary Embolism Present on Admission: No
--- NOTE | 2018-12-03 08:15 | PC.NURSE ---
Addendum entered by Serena Gale R.N. 12/03/18 13:38: Dr Patel into see Pt, changed home pain control to Percocet d/t worsening anxiety. Pt immediately wants d/c home. Add=clarified that Pt has meds from pharmacy, those were sent with S. O. on previous shift. Life Sciences Manager left behind on d/c, notified Pt by phone. Will picking crew supervisor in AM. Original Note: Am shift Pt requests pain medication and longer to rest this AM. Dilaudid PO given. Dr Patel into give d/c orders.
[2018-12-03] MEDS: metroNIDAZOLE 500 MG TABLET PO (11:05)
[2018-12-03] MEDS: DOXYCYCLINE HYCLATE 100 MG TABLET PO (11:06)
[2018-12-03] MEDS: SODIUM CHLORIDE 0.9% FLUSH 10 ML IV (11:07)
--- NOTE | 2018-12-03 11:45 | PC.NURSE ---
Discussing d/c with Pt and she became tearful and visably anxious.POC for d/c PO pain medication and then her BF is going to be picking her up. She will be ready to go after lunch. With this discussion of POC, Pt requested call into Dr Patel. Updated her RN.
== END 2018-12-03 13:37 | disposition home or self-care (01) | DRG 531 ==
PROVIDERS: Admitting Provider Specialist; PCP Nurse Practitioner; Visit Provider Specialist
DX: N73.9 Female pelvic inflammatory disease, unspecified (principal); F17.210 Nicotine dependence, cigarettes, uncomplicated
CPT/HCPCS: 36415; 36591; 76830; 76856; 80053; 81003; 81015; 81025; 83605; 83690; 85025; 87040; 87070; 87077; 87147; 87205; 87210; 87255; 87491; 87591; 99221; 99231; 99238; 99285; 99406; J1170; J1885; J2270; J2405; J2540

== ENCOUNTER 2018-12-07 09:23 | Emergency (ER) | payer OTHER, MEDICAID, SELFPAY ==
[2018-12-07 09:35] VITALS: BP 133/96; PULSE 85; RESP 20; TEMP 36.4; O2SAT 100; BMI 22.3
[2018-12-07 09:45] VITALS: PULSE 75; RESP 20; O2SAT 100
[2018-12-07 11:10] VITALS: BP 129/87; PULSE 78; RESP 16; O2SAT 99
--- NOTE | 2018-12-07 11:24 | ED.ANXIETY ---
HPI - Anxiety General Chief Complaint: Anxiety Stated Complaint: SEVERE PANIC ATTACK Time Seen by Provider: 12/07/18 11:03 Source: patient and old records reviewed Mode of arrival: ambulatory Limitations: no limitations History of Present Illness HPI narrative: this is a 28-year-old female comes to the emergency department with concern for panic attack. Patient states she has a history of anxiety. She normally takes He daily oral medication but has not been taking it recently. patient states that she has been up all night anxious. She states that she typically tries home remedies and self-care but this has not been working she was seen here recently by myself for PID, was following up with OBGYN and was ultimately admitted and discharged last . She states she has been improving she is still on oral antibiotics. She has been afebrile, she is not having any chills, she has not had any shortness breath or chest pain. She states her abdominal pain has been resolving and improving. She is denying any new vaginal discharge. She states she has some dysuria but that is actually improved from when she was here last. She defers a urine sample at this time. She states she has taken Xanax in the past and that it was helpful. Related Data Home Medications Medication Instructions Recorded Confirmed ibuprofen 1 tab PO Q4H PRN 07/15/18 12/07/18 naloxone 1 spray INTRANASAL DIRECTED 07/15/18 12/07/18 sertraline 100 mg tablet 200 mg PO DAILY 11/25/18 12/07/18 acetaminophen-pamabrom [Midol] 1 tab PO PRN PRN 12/07/18 12/07/18 diphenhydramine-acetaminophen 1 tab PO BEDTIME PRN 12/07/18 12/07/18 [Tylenol PM Extra Strength] meloxicam 15 mg PO DAILY 12/07/18 12/07/18 omeprazole 20 mg PO DAILY 12/07/18 12/07/18 prazosin 2 mg PO BEDTIME 12/07/18 12/07/18 Previous Rx's Medication Instructions Recorded doxycycline hyclate 100 mg PO BID #20 cap 11/29/18 ondansetron 4 mg SUBLINGUAL Q6HR PRN #10 tab 12/03/18 oxycodone-acetaminophen 7.5 mg-325 2 tab PO Q4-6H PRN #45 tab 12/03/18 mg tablet valacyclovir 1,000 mg PO BID #14 tab 12/03/18 alprazolam [Xanax] 0.5 mg PO BID-TID PRN #10 tab 12/07/18 Allergies Allergy/AdvReac Type Severity Reaction Status Date / Time hydrocodone [From Vicodin] Allergy Mild BAD DREAMS Verified 11/30/18 09:56 Review of Systems Review of Systems ROS Unobtainable: All systems reviewed & are unremarkable except as noted in HPI and below Constitutional Denies chills, Denies fever(s), Denies lethargy and Denies weakness Cardiovascular Denies chest pain, Denies irregular heart rhythm, Denies lightheadedness, Denies palpitations, Denies dyspnea and Denies dyspnea on exertion Respiratory Denies cough, Denies dyspnea, Denies dyspnea on exertion and Denies wheezing Gastrointestinal Gastrointestinal: Reports abdominal pain ( Mild and improved), Denies change in bowel habits, Denies diarrhea, Reports nausea and Reports vomiting ( occasional) Genitourinary Denies hematuria, Reports dysuria, Denies flank pain, Denies urinary incontinence, Denies urinary urgency, Denies vaginal discharge and Denies vaginal odor Musculoskeletal Denies back pain Integumentary/Breasts Denies rash Neurologic Denies weakness Psychiatric Reports anxiety and Denies suicidal ideation Endocrine Denies palpitations Allergic/Immunologic Denies wheezing PFSH Social History household members: none Smoking Status: Current every day smoker alcohol intake: current substance use type: does not use Exam Narrative Exam Narrative: GEN: well nourished, well appearing female, alert and oriented x 3, patient appears to be in mild distress. HEENT: Atraumatic, pupils are equal round reactive to light, extraocular movements are intact. HEART: Regular rate and rhythm without murmur, clicks, rubs. LUNGS:Lungs clear to auscultation, no wheezes, rales, crackles, chest moves symmetrically ABD:bowel sounds normal, soft, non-tender, no guarding, rebound, rigidity, no masses noted, no hepatosplenomegaly :No CVA tenderness MSCL: Non-tender, no muscle atrophy, muscles strength 5/5 upper and lower extremities, full range of motion, normal gait NEURO:CN 2-12 intact, sensation normal Initial Vital Signs Initial Vital Signs: Vital Signs Temperature 97.5 F L 12/07/18 09:35 Pulse Rate 85 12/07/18 09:35 Respiratory Rate 20 12/07/18 09:35 Blood Pressure 133/96 H 12/07/18 09:35 Pulse Oximetry 100 12/07/18 09:35 Course Vital Signs - 8 hr 12/07/18 09:35 12/07/18 09:45 12/07/18 11:10 Temperature 97.5 F L Pulse Rate 85 75 78 Respiratory Rate 20 20 16 Blood Pressure 133/96 H Blood Pressure [Right Arm] 129/87 Pulse Oximetry 100 100 99 12/07/18 11:36 Temperature Pulse Rate 87 Respiratory Rate 18 Blood Pressure 131/96 H Blood Pressure [Right Arm] Pulse Oximetry 97 MDM - Anxiety MDM Narrative Medical decision making narrative: patient here in the department had recent PID and was admitted for short period for this. She states her symptoms are progressing in a positive manner and she continues to improve. She has been feeling quite anxious lately. She has been off her Suboxone and states that she had this probably contributes. Patient and I discussed she does not wish to do further workup at this time is for evaluation of any continuing infection that she would return if she was not improving. We did discuss doing a short course of Xanax that she would have to get any future medications from a primary care physician. Discharge Plan Departure Patient Disposition: Home Clinical Impression: Anxiety Discharge Date/Time: 12/07/18 11:38 Interventions: ED Discharge Assessment Last Done: 12/07/18 11:36 Instructions: Anxiety and Panic Attacks (Alternative Therapy) Activity Restrictions/Additional Instructions: Follow up with your physician at your appointment on . You may take 1/2 tablet of Xanax every 8 hr as needed for symptoms. This medication can make you sleepy do not drive, perform hazards activities or make any major decisions while taking them. Return to the emergency department for fevers greater than 100.4, new abdominal pain, persistent vomiting, black or bloody stools, new vaginal or worsening discharge, suicidal thoughts or thoughts of harming yourself or others. Prescriptions: New alprazolam [Xanax] 1 mg tablet 0.5 mg PO BID-TID PRN (Reason: anxiety) Qty: 10 RF: 0 No Action sertraline 100 mg tablet 200 mg PO DAILY RF: 0 oxycodone-acetaminophen 7.5-325 mg tablet 2 tab PO Q4-6H PRN (Reason: pain) Qty: 45 RF: 0 ibuprofen 800 mg tablet 1 tab PO Q4H PRN (Reason: pain) RF: 0 naloxone 4 mg/actuation spray,non-aerosol 1 spray Intranasal DIRECTED RF: 0 doxycycline hyclate 100 mg capsule 100 mg PO BID Qty: 20 RF: 0 valacyclovir 1 gram tablet 1,000 mg PO BID Qty: 14 RF: 0 ondansetron 4 mg Tablet,Disintegrating 4 mg Sublingual Q6HR PRN (Reason: Nausea) Qty: 10 RF: 0 meloxicam 15 mg tablet 15 mg PO DAILY RF: 0 omeprazole 20 mg capsule,delayed release(DR/EC) 20 mg PO DAILY RF: 0 prazosin 2 mg capsule 2 mg PO BEDTIME RF: 0 Midol 500-25 mg Tablet 1 tab PO PRN PRN (Reason: Cramps) RF: 0 diphenhydramine-acetaminophen [Tylenol PM Extra Strength] 25-500 mg Tablet 1 tab PO BEDTIME PRN (Reason: pain and sleep) RF: 0 Referrals: Gloria Sanchez ARNP [Primary Care Provider] -
[2018-12-07 11:36] VITALS: BP 131/96; PULSE 87; RESP 18; O2SAT 97
== END 2018-12-07 11:38 | disposition home or self-care (01) ==
PROVIDERS: Emergency Provider Emergency Medicine; PCP Nurse Practitioner
DX: F41.9 Anxiety disorder, unspecified (principal)
CPT/HCPCS: 99282

== ENCOUNTER 2018-12-10 09:41 | Emergency (ER) | payer OTHER, MEDICAID, SELFPAY ==
[2018-12-10 09:47] VITALS: BP 125/88; PULSE 94; RESP 20; TEMP 36.5; O2SAT 99
--- NOTE | 2018-12-10 10:07 | ED.ABDPAIN ---
HPI - Abdominal Pain General Chief Complaint: Abdominal Pain Stated Complaint: 'massive stomach pain' Time Seen by Provider: 12/10/18 09:53 Source: patient Mode of arrival: ambulatory Limitations: no limitations History of Present Illness HPI narrative: Patient is a 33-year-old female who has been seen multiple times for abdominal pain and pelvic pain. She was recently admitted to the hospital and treated for PID. She has recently finished all those antibiotics. She is here again today for diarrhea and abdominal pain and nausea and vomiting. She states that this has been going on for the past couple days. She feels that this abdominal pain is different from her pelvic pain for which she was diagnosis PID. Related Data Home Medications Medication Instructions Recorded Confirmed ibuprofen 1 tab PO Q4H PRN 07/15/18 12/10/18 naloxone 1 spray INTRANASAL DIRECTED 07/15/18 12/10/18 sertraline 100 mg tablet 200 mg PO DAILY 11/25/18 12/10/18 acetaminophen-pamabrom [Midol] 1 tab PO PRN PRN 12/07/18 12/10/18 diphenhydramine-acetaminophen 1 tab PO BEDTIME PRN 12/07/18 12/10/18 [Tylenol PM Extra Strength] meloxicam 15 mg PO DAILY PRN 12/07/18 12/10/18 omeprazole 20 mg PO DAILY 12/07/18 12/10/18 prazosin 2 mg PO BEDTIME 12/07/18 12/10/18 buprenorphine-naloxone [Suboxone] 1 tab SUBLINGUAL DAILY 12/10/18 12/10/18 docusate sodium [DOK] 100 mg PO BID PRN 12/10/18 12/10/18 fluconazole 150 mg PO .ONCE 12/10/18 12/10/18 metronidazole 5 g VAGINAL DAILY 12/10/18 12/10/18 oxycodone-acetaminophen 1 tab PO Q4-6H PRN 12/10/18 12/10/18 spironolactone 100 mg PO DAILY 12/10/18 12/10/18 trazodone 50 mg PO BEDTIME 12/10/18 12/10/18 valacyclovir 1 g PO BID 12/10/18 Previous Rx's Medication Instructions Recorded doxycycline hyclate 100 mg PO BID #20 cap 11/29/18 ondansetron 4 mg SUBLINGUAL Q6HR PRN #10 tab 12/03/18 alprazolam [Xanax] 0.5 mg PO BID-TID PRN #10 tab 12/07/18 acyclovir 400 mg tablet 400 mg PO DAILY #30 tab 12/09/18 ondansetron 4 mg PO Q6-8H PRN #10 tab 12/10/18 oxycodone-acetaminophen [Percocet] 1 tab PO Q4-6H PRN #10 tab 12/10/18 Allergies Allergy/AdvReac Type Severity Reaction Status Date / Time hydrocodone [From Vicodin] Allergy Mild BAD DREAMS Verified 12/09/18 13:38 Review of Systems Constitutional Denies fever(s) and Denies headache(s) ENT Ears, Nose, Mouth, and Throat: Denies dizziness and Denies headache(s) Cardiovascular Denies chest pain and Denies dyspnea Respiratory Denies dyspnea Gastrointestinal Gastrointestinal: Reports abdominal pain, Reports diarrhea, Reports nausea and Reports vomiting Genitourinary Denies dysuria, Denies pelvic pain and Denies vaginal discharge Musculoskeletal Denies myalgias and Denies arthralgias Integumentary/Breasts Denies lesions and Denies rash Neurologic Denies dizziness and Denies headache(s) Psychiatric Denies anxiety Allergic/Immunologic Denies urticaria PFS Social History household members: none Smoking Status: Current every day smoker alcohol intake: current substance use type: does not use Exam Initial Vital Signs Initial Vital Signs: Vital Signs Temperature 97.7 F 12/10/18 09:47 Pulse Rate 94 H 12/10/18 09:47 Respiratory Rate 20 12/10/18 09:47 Blood Pressure 125/88 12/10/18 09:47 Pulse Oximetry 99 12/10/18 09:47 Const General: cooperative, healthy appearing, comfortable, well developed, well groomed and No acute distress Orientation: alert, awake and oriented x3 HENMT Head: normal to inspection and normocephalic Resp Effort & Inspection: normal respiratory effort Auscultation: clear to auscultation bilaterally Cardio Rate: regular rate Rhythm: regular rhythm GI Inspection: non-distended Palpation: soft, No firm and tender (Tender throughout however is tender in the right upper quadrant epigastric ) Back/Spine/Pelvis Back: No CVA tenderness Skin Lesions: no lesions Rashes: no rashes Neuro General: alert, awake and oriented x3 Cognition: normal cognition Speech: speech normal Extrem General: normal to inspection and capillary refill normal Psych Appearance: grossly normal and well kempt Course Orders Ordered: ED Orders 12/10/18 10:08 CT abdomen pelvis w con Stat 12/10/18 10:24 Complete Blood Count AUTO DIFF Stat Comprehensive Metabolic Panel Stat Lipase Stat Test Serum,Qual Stat 12/10/18 12:36 Urine Culture Stat Urine Microscopic Stat 12/10/18 12:47 US abdomen complete Stat Discontinued Medications Sodium Chloride (Normal Saline 0.9%) 1,000 mls @ 1,000 mls/hr IV BOLUS ONE Stop: 12/10/18 11:06 Last Infusion: 12/10/18 11:34 Dose: 0 mls/hr Admin: 12/10/18 10:29 Dose: 1,000 mls/hr Oxycodone/Acetaminophen (Percocet 5/325) 1 tab PO NOW ONE Stop: 12/10/18 12:47 Last Admin: 12/10/18 12:55 Dose: 1 tab Vital Signs - 8 hr 12/10/18 09:47 12/10/18 13:00 12/10/18 15:02 Temperature 97.7 F 99.2 F 98.1 F Pulse Rate 94 H 76 62 Respiratory Rate 20 14 16 Blood Pressure 125/88 Blood Pressure [Left Arm] 120/89 131/88 Pulse Oximetry 99 98 99 MDM - Abdominal Pain Medical Records Attestation: I reviewed the patient's medical records. Lab Data Attestation: I reviewed the patient's lab results. Result diagrams: 12/10/18 10:24 12/10/18 10:24 Lab Results 12/10/18 12/10/18 12/10/18 Range/Units 10:24 10:24 10:24 WBC 10.0 (4.5-11.0) X10^3/uL RBC 4.47 (4.0-5.2) X10^6/uL Hgb 15.8 (12.0-16.0) g/dL Hct 45.9 (36-46) % MCV 102.6 H D (80-100) fL MCH 35.3 H (26-34) PG MCHC 34.4 (30-36) % RDW 14.0 (11.6-14.8) % Plt Count 448 H (150-400) X10^3/uL Neut % (Auto) 64.5 (50-75) % Lymph % (Auto) 24.1 L (25-40) % [place] % (Auto) 9.1 (3-14) % Eos % (Auto) 1.5 L (2-4) % Baso % (Auto) 0.8 (0-2) % Neut # (Auto) 6400 (8139-7388) /uL Lymph # (Auto) 2400 (6062-3561) /uL [place] # (Auto) 900 (0-900) /uL Eos # (Auto) 100 (0-450) /uL Baso # (Auto) 100 (0-100) /uL Sodium 140 (137-145) mmol/L Potassium 4.1 (3.4-5.1) mmol/L Chloride 97 L (98-107) mmol/L Carbon Dioxide 28 (22-32) mmol/L BUN 12 (7-17) mg/dL Creatinine 0.60 (0.52-1.04) mg/dL Estimated GFR > 60.0 (>60) mL/min BUN/Creatinine Ratio 20.0 (6-22) Glucose 124 H (70-100) mg/dL Calcium 10.5 H (8.4-10.2) mg/dL Total Bilirubin 0.8 (0.2-1.3) mg/dL AST 25 (14-36) IU/L ALT 28 (9-52) IU/L Alkaline Phosphatase 92 (38-126) U/L Total Protein 8.9 H (6.3-8.2) g/dL Albumin 5.1 H (3.5-5.0) g/dL Globulin 3.8 (1.7-4.1) g/dL Albumin/Globulin Ratio 1.3 (1.0-2.8) Lipase 465 H (23-300) U/L Serum , Qual Negative (Negative) Urine RBC (0-5/HPF) Urine WBC (0-5/HPF) Ur Squamous Epith Cells Amorphous Sediment Urine Bacteria (None) Urine Mucus (Negative) Ur Culture Indicated? 12/10/18 Range/Units 12:36 WBC (4.5-11.0) X10^3/uL RBC (4.0-5.2) X10^6/uL Hgb (12.0-16.0) g/dL Hct (36-46) % MCV (80-100) fL MCH (26-34) PG MCHC (30-36) % RDW (11.6-14.8) % Plt Count (150-400) X10^3/uL Neut % (Auto) (50-75) % Lymph % (Auto) (25-40) % [place] % (Auto) (3-14) % Eos % (Auto) (2-4) % Baso % (Auto) (0-2) % Neut # (Auto) (8478-0505) /uL Lymph # (Auto) (8014-2068) /uL [place] # (Auto) (0-900) /uL Eos # (Auto) (0-450) /uL Baso # (Auto) (0-100) /uL Sodium (137-145) mmol/L Potassium (3.4-5.1) mmol/L Chloride (98-107) mmol/L Carbon Dioxide (22-32) mmol/L BUN (7-17) mg/dL Creatinine (0.52-1.04) mg/dL Estimated GFR (>60) mL/min BUN/Creatinine Ratio (6-22) Glucose (70-100) mg/dL Calcium (8.4-10.2) mg/dL Total Bilirubin (0.2-1.3) mg/dL AST (14-36) IU/L ALT (9-52) IU/L Alkaline Phosphatase (38-126) U/L Total Protein (6.3-8.2) g/dL Albumin (3.5-5.0) g/dL Globulin (1.7-4.1) g/dL Albumin/Globulin Ratio (1.0-2.8) Lipase (23-300) U/L Serum , Qual (Negative) Urine RBC None seen (0-5/HPF) Urine WBC 1-5/hpf (0-5/HPF) Ur Squamous Epith Cells 0-1 /hpf Amorphous Sediment 3+ Urine Bacteria Few (2-10) H (None) Urine Mucus 1+ H (Negative) Ur Culture Indicated? Specimen cultured Point of care testing: Urine Dip Bedside Urine Glucose Negative Bedside Urine Bilirubin - Negative Bedside Urine Ketone - Negative Urine Specific [place] 1.020 Bedside Urine Occult Blood - Negative Bedside Urine pH 7.0 Bedside Urine Protein - Negative Bedside Urine Urobilinogen - Negative Bedside Urine Nitrite - Negative Bedside Urine Leukocytes +/- 15 Esterase Imaging Data US - abdomen: Radiologist's impression: PROCEDURE: US ABDOMEN COMPLETE INDICATIONS: RIGHT UPPER QUADRANT PAIN, CONCERN FOR GALLBLADDER PATHOLOGY TECHNIQUE: Real-time scanning was performed of the abdominal and retroperitoneal organs, with image documentation. COMPARISON: [facility], CT, CT ABDOMEN PELVIS W CON, 12/10/2018, 11:59. FINDINGS: Liver: Liver is normal in size and homogeneous in echotexture. Gallbladder: Gallbladder is small, likely contracted. No definitive gallstones. Gallbladder wall measures 2.4 mm. No pericholecystic collection or sonographic Downing sign. Biliary ducts: Intrahepatic bile ducts are non-dilated. Extrahepatic bile duct caliber measures 3 mm. Normal is 6-7 mm or less in diameter, or 10 mm or less post-cholecystectomy. Pancreas: Visualized portions of the pancreas are sonographically normal. A small 1.3 x 0.5 x 1.0 cm oval-shaped hypoechoic structure is seen near the pancreatic head, compatible with a peripancreatic lymph node. Spleen: Spleen is normal in size and homogeneous in echotexture. Kidneys: Kidneys are normal in size and echotexture. Right kidney measures 11.9 cm long; left kidney measures 11.0 cm long. No hydronephrosis or nephrolithiasis. No solid masses. Aorta: Visualized aorta is normal in caliber at less than 3 cm. Iliacs: Proximal common iliac arteries are normal in caliber at less than 2.5 cm. IVC: Intrahepatic inferior vena cava is patent. Miscellaneous: No free abdominal fluid. IMPRESSION: 1. The gallbladder wall may be mildly thickened but the gallbladder is semicontracted. No gallstones or pericholecystic fluid collection. No sonographic Downing sign. The findings argue against acute cholecystitis. Differential diagnoses include inadequate distention versus chronic cholecystitis. 2. A small peripancreatic lymph node is noted adjacent to the pancreatic head, which is nonspecific. Dictated by: Riri Subramanian M.D. on 12/10/2018 at 14:16 Approved by: Riri Subramanian M.D. on 12/10/2018 at 14:29 CT scan - abdomen: Radiologist's impression: PROCEDURE: CT ABDOMEN PELVIS W CON INDICATIONS: abdominal pain TECHNIQUE: After the administration of oral and intravenous contrast, 5 mm thick sections acquired from the diaphragms to the symphysis. 5 mm thick coronal and sagittal reformats were performed. For radiation dose reduction, the following was used: automated exposure control, adjustment of mA and/or kV according to patient size. COMPARISON: None. FINDINGS: Image quality: Diagnostic. ABDOMEN: Lung bases: Lung bases are clear. Heart size is normal. Solid organs: Liver is normal in size and enhancement. Gallbladder is decompressed, but demonstrate avid mucosal enhancement. There may be mild edema within the adjacent mesentery. Biliary system is non-dilated. Pancreas enhances normally. Spleen is normal in size and enhancement. No adrenal nodules. Kidneys are normal in size and enhancement, without hydronephrosis. Peritoneum and bowel: Mild prominence of the wall of the body of the stomach is present, which may be exaggerated by incomplete distention. Fluid-filled duodenum is noted involving the 1st and 2nd portions. Otherwise, the duodenum is unremarkable. The small bowel loops are nondilated. There are questionable areas of mild mucosal thickening and enhancement throughout the small bowel. The appendix is within normal limits (image 22, series 4). Moderate thickening involving the wall of the proximal colon is evident, most pronounced within the region of the hepatic flexure. There is edema identified within the adjacent mesentery. No free fluid or loculated fluid collection is evident. There is no free air. Nodes and vessels: No retroperitoneal or mesenteric adenopathy. Aorta and inferior vena cava are normal in caliber. Bones: No acute fractures or suspicious osseous lesions are present. PELVIS: Genitourinary: Bladder wall thickness is normal. The uterus and ovaries are not well evaluated, but did not appear to be enlarged. Miscellaneous: No inguinal hernias or adenopathy. No significant free fluid is seen within the pelvis. There is no loculated fluid collection or free air. Bones: No suspicious bony lesions. No acute pelvic fractures. IMPRESSION: 1. Moderate wall thickening of the proximal colon is suspicious for colitis. There is no bowel obstruction. 2. Additional areas of questionable wall thickening involving the small bowel and stomach may represent gastroenteritis. 3. Avid enhancement of the gallbladder wall could be reactive to inflammation of the colon. Clinical correlation to exclude cholecystitis is recommended. 4. Normal appendix. Dictated by: Sanford Ramirez M.D. on 12/10/2018 at 11:27 Approved by: Sanford Ramirez M.D. on 12/10/2018 at 11:33 [facility] Narrative Medical decision making narrative: Patient's labs unremarkable. Does have a slightly elevated lipase however does not consistent with pancreatitis. LFTs are unremarkable. Right upper quadrant ultrasound is not definitive for cholecystitis and given normal LFTs and a normal white blood cell count will hold on further workup for this now. The patient does have CT that could potentially be a colitis. Patient does not want any more antibiotics and she just finished a course of antibiotics. We did discuss this could potentially cause diarrhea and could very well be causing all of her other symptoms. Will send home with nausea medication. Was sent home with a very short course of pain medication. Informed her she needed to contact her primary care doctor for follow-up. She was given return precautions. Both her and family were at bedside expressed understanding and agreement with plan. Discharge Plan Departure Patient Disposition: Home Clinical Impression: Colitis Abdominal pain Qualifiers: Abdominal location: generalized Qualified Code(s): R10.84 - Generalized abdominal pain Discharge Date/Time: 12/10/18 15:11 Interventions: ED Discharge Assessment Last Done: 12/10/18 15:11 Instructions: DI for Abdominal Pain-Adult Activity Restrictions/Additional Instructions: I do recommend you contact your primary care doctor for a follow-up. Take the medications as directed. Increase your fluid intake. Expect some continued diarrhea. Return to the emergency department for any new or worsening symptoms Prescriptions: New oxycodone-acetaminophen [Percocet] 5-325 mg tablet 1 tab PO Q4-6H PRN (Reason: pain) Qty: 10 RF: 0 ondansetron 4 mg tablet,disintegrating 4 mg PO Q6-8H PRN (Reason: nausea and vomiting) Qty: 10 RF: 0 No Action sertraline 100 mg tablet 200 mg PO DAILY RF: 0 acyclovir 400 mg tablet 400 mg PO DAILY Qty: 30 RF: 6 trazodone 50 mg tablet 50 mg PO BEDTIME RF: 0 fluconazole 150 mg tablet 150 mg PO .ONCE RF: 0 valacyclovir 1 gram tablet 1 g PO BID RF: 0 metronidazole 0.75 % gel 5 g Vaginal DAILY RF: 0 spironolactone 100 mg tablet 100 mg PO DAILY RF: 0 oxycodone-acetaminophen 5-325 mg tablet 1 tab PO Q4-6H PRN (Reason: pain) RF: 0 docusate sodium [DOK] 100 mg capsule 100 mg PO BID PRN (Reason: Constipation) RF: 0 buprenorphine-naloxone [Suboxone] 8-2 mg film 1 tab Sublingual DAILY RF: 0 ibuprofen 800 mg tablet 1 tab PO Q4H PRN (Reason: pain) RF: 0 naloxone 4 mg/actuation spray,non-aerosol 1 spray Intranasal DIRECTED RF: 0 doxycycline hyclate 100 mg capsule 100 mg PO BID Qty: 20 RF: 0 ondansetron 4 mg Tablet,Disintegrating 4 mg Sublingual Q6HR PRN (Reason: Nausea) Qty: 10 RF: 0 meloxicam 15 mg tablet 15 mg PO DAILY PRN (Reason: pain) RF: 0 omeprazole 20 mg capsule,delayed release(DR/EC) 20 mg PO DAILY RF: 0 prazosin 2 mg capsule 2 mg PO BEDTIME RF: 0 Midol 500-25 mg Tablet 1 tab PO PRN PRN (Reason: Cramps) RF: 0 diphenhydramine-acetaminophen [Tylenol PM Extra Strength] 25-500 mg Tablet 1 tab PO BEDTIME PRN (Reason: pain and sleep) RF: 0 alprazolam [Xanax] 1 mg tablet 0.5 mg PO BID-TID PRN (Reason: anxiety) Qty: 10 RF: 0 Referrals: Timothy Polk MD [Primary Care Provider] -
[2018-12-10] MEDS: SODIUM CHLORIDE 0.9% 1,000 ML 1000 ML IV (10:29)
[2018-12-10 11:30] LABS: Add Manual Diff / Slide Review NO; Basophils Absolute Auto 100 /uL (0-100); Basophils Percent Auto 0.8 % (0-2); Eosinophils Absolute Auto 100 /uL (0-450); Eosinophils Percent Auto 1.5 % (2-4); Hematocrit 45.9 % (36-46); Hemoglobin 15.8 g/dL (12.0-16.0); Lymphocytes Absolute Auto 2400 /uL (1100-4500); Lymphocytes Percent Auto 24.1 % (25-40); Mean Corpuscular HGB Conc 34.4 % (30-36); Mean Corpuscular Hemoglobin 35.3 PG (26-34); Mean Corpuscular Volume 102.6 fL (80-100); Monocytes Absolute Auto 900 /uL (0-900); Monocytes Percent Auto 9.1 % (3-14); Neutrophils Absolute Auto 6400 /uL (1500-7000); Neutrophils Percent Auto 64.5 % (50-75); Platelet Count 448 X10^3/uL (150-400); Red Blood Cell Count 4.47 X10^6/uL (4.0-5.2)
[2018-12-10 11:46] LABS: Alanine Aminotransferase 28 IU/L (9-52); Albumin 5.1 g/dL (3.5-5.0); Albumin Globulin Ratio 1.3 (1.0-2.8); Alkaline Phosphatase 92 U/L (38-126); Aspartate Aminotransferase 25 IU/L (14-36); Bilirubin Total 0.8 mg/dL (0.2-1.3); Blood Urea Nitrogen 12 mg/dL (7-17); Calcium 10.5 mg/dL (8.4-10.2); Carbon Dioxide 28 mmol/L (22-32); Chloride 97 mmol/L (98-107); Estimated Glomerular Filt Rate > 60.0 mL/min (>60); Globulin 3.8 g/dL (1.7-4.1); Glucose 124 mg/dL (70-100); HEMOLYSIS < 15 (0-50); Lipase 465 U/L (23-300); Potassium 4.1 mmol/L (3.4-5.1); Sodium 140 mmol/L (137-145); Total Protein 8.9 g/dL (6.3-8.2)
[2018-12-10 11:47] LABS: Pregnancy Test Serum,Qual Negative (Negative)
[2018-12-10 12:37] LABS: RBC Urine None Seen (0-5/HPF)
--- NOTE | 2018-12-10 12:47 | DI.US.S_ITS ---
PROCEDURE: US ABDOMEN COMPLETE INDICATIONS: RIGHT UPPER QUADRANT PAIN, CONCERN FOR GALLBLADDER PATHOLOGY TECHNIQUE: Real-time scanning was performed of the abdominal and retroperitoneal organs, with image documentation. COMPARISON: [facility], CT, CT ABDOMEN PELVIS W CON, 12/10/2018, 11:59. FINDINGS: Liver: Liver is normal in size and homogeneous in echotexture. Gallbladder: Gallbladder is small, likely contracted. No definitive gallstones. Gallbladder wall measures 2.4 mm. No pericholecystic collection or sonographic Downing sign. Biliary ducts: Intrahepatic bile ducts are non-dilated. Extrahepatic bile duct caliber measures 3 mm. Normal is 6-7 mm or less in diameter, or 10 mm or less post-cholecystectomy. Pancreas: Visualized portions of the pancreas are sonographically normal. A small 1.3 x 0.5 x 1.0 cm oval-shaped hypoechoic structure is seen near the pancreatic head, compatible with a peripancreatic lymph node. Spleen: Spleen is normal in size and homogeneous in echotexture. Kidneys: Kidneys are normal in size and echotexture. Right kidney measures 11.9 cm long; left kidney measures 11.0 cm long. No hydronephrosis or nephrolithiasis. No solid masses. Aorta: Visualized aorta is normal in caliber at less than 3 cm. Iliacs: Proximal common iliac arteries are normal in caliber at less than 2.5 cm. IVC: Intrahepatic inferior vena cava is patent. Miscellaneous: No free abdominal fluid. IMPRESSION: 1. The gallbladder wall may be mildly thickened but the gallbladder is semicontracted. No gallstones or pericholecystic fluid collection. No sonographic Downing sign. The findings argue against acute cholecystitis. Differential diagnoses include inadequate distention versus chronic cholecystitis. 2. A small peripancreatic lymph node is noted adjacent to the pancreatic head, which is nonspecific. Dictated by: Riri Subramanian M.D. on 12/10/2018 at 14:16 Approved by: Riri Subramanian M.D. on 12/10/2018 at 14:29
[2018-12-10 12:50] LABS: Amorphous Sediment Urine 3+; Bacteria Urine Few (2-10); Culture Indicated Urine Specimen Cultured; Mucus Urine 1+ (Negative); Squamous Epithelial Cell Urine 0-1 /HPF; WBC Urine 1-5/HPF (0-5/HPF)
[2018-12-10] MEDS: OXYCODONE/ACETAMINOPHEN 5/325 TABLET 1 TAB PO (12:55)
[2018-12-10 13:00] VITALS: BP 120/89; PULSE 76; RESP 14; TEMP 37.3; O2SAT 98
[2018-12-10 15:02] VITALS: BP 131/88; PULSE 62; RESP 16; TEMP 36.7; O2SAT 99
== END 2018-12-10 15:11 | disposition home or self-care (01) ==
PROVIDERS: Emergency Provider Emergency Medicine; PCP Family Medicine
DX: R10.84 Generalized abdominal pain (principal)
CPT/HCPCS: 36591; 74177; 76700; 80053; 81003; 81015; 83690; 84703; 85025; 87086; 96360; 99283; 99285; Q9967

== ENCOUNTER 2018-12-20 21:52 | Emergency (ER) | payer OTHER, MEDICAID, SELFPAY ==
[2018-12-20 22:01] VITALS: BP 120/81; PULSE 104; RESP 18; TEMP 36.8; O2SAT 100; BMI 21.3
--- NOTE | 2018-12-20 22:11 | ED.ABDPAIN ---
HPI - Abdominal Pain General Chief Complaint: Abdominal Pain Stated Complaint: ABD PAIN GETTING TO HER CHEST Time Seen by Provider: 12/20/18 21:53 Source: patient Mode of arrival: ambulatory Limitations: no limitations History of Present Illness HPI narrative: 28-year-old female smoker with history of anxiety and abdominal pain presents to the emergency department again for ongoing upper abdominal complaints. The patient has been seen multiple times for similar symptoms including burning and aching right upper quadrant and epigastric pain with radiation to her back. She states it is moving a bit further up in her chest. She has increasing pain and nausea with eating and drinking and has lost considerable weight over the past few months. Patient has had multiple workups including visits to the emergency department with ultrasound and CT scan that I have noted some vague and nonspecific inflammatory change. She has had slightly elevated lipase but otherwise essentially normal evaluation. She has had an outpatient evaluation by GI and has a scheduled toro endoscopy in March. In an effort to speed up the process she consulted another GI group whom stated they thought they could probably get her in a bit sooner. She has occasional chills and subjective fever as well as nausea, generalized abdominal discomfort and occasional loose stools. MD complaint: abdominal pain Onset (ago): month(s) Pain Consistency: intermittent Location: epigastric Severity: moderate Quality: cramping and aching Radiation: back Relieving factors: nothing Exacerbating factors: eating Associated symptoms: nausea, vomiting, diarrhea and chills Related Data Home Medications Medication Instructions Recorded Confirmed ibuprofen 1 tab PO Q4H PRN 07/15/18 12/10/18 naloxone 1 spray INTRANASAL DIRECTED 07/15/18 12/10/18 sertraline 100 mg tablet 200 mg PO DAILY 11/25/18 12/10/18 acetaminophen-pamabrom [Midol] 1 tab PO PRN PRN 12/07/18 12/10/18 diphenhydramine-acetaminophen 1 tab PO BEDTIME PRN 12/07/18 12/10/18 [Tylenol PM Extra Strength] meloxicam 15 mg PO DAILY PRN 12/07/18 12/10/18 omeprazole 20 mg PO DAILY 12/07/18 12/10/18 prazosin 2 mg PO BEDTIME 12/07/18 12/10/18 buprenorphine-naloxone [Suboxone] 1 tab SUBLINGUAL DAILY 12/10/18 12/10/18 docusate sodium [DOK] 100 mg PO BID PRN 12/10/18 12/10/18 fluconazole 150 mg PO .ONCE 12/10/18 12/10/18 metronidazole 5 g VAGINAL DAILY 12/10/18 12/10/18 oxycodone-acetaminophen 1 tab PO Q4-6H PRN 12/10/18 12/10/18 spironolactone 100 mg PO DAILY 12/10/18 12/10/18 trazodone 50 mg PO BEDTIME 12/10/18 12/10/18 valacyclovir 1 g PO BID 12/10/18 Previous Rx's Medication Instructions Recorded doxycycline hyclate 100 mg PO BID #20 cap 11/29/18 ondansetron 4 mg SUBLINGUAL Q6HR PRN #10 tab 12/03/18 alprazolam [Xanax] 0.5 mg PO BID-TID PRN #10 tab 12/07/18 acyclovir 400 mg tablet 400 mg PO DAILY #30 tab 12/09/18 ondansetron 4 mg PO Q6-8H PRN #10 tab 12/10/18 oxycodone-acetaminophen [Percocet] 1 tab PO Q4-6H PRN #10 tab 12/10/18 Allergies Allergy/AdvReac Type Severity Reaction Status Date / Time hydrocodone [From Vicodin] Allergy Mild BAD DREAMS Verified 12/09/18 13:38 Review of Systems Constitutional Reports chills, Denies fever(s), Denies lethargy and Denies weakness Eyes Denies change in vision, Denies eye discharge, Denies irritation and Denies loss of vision ENT Ears, Nose, Mouth, and Throat: Denies change in voice, Denies neck pain and Denies sore throat Cardiovascular Denies chest pain, Denies irregular heart rhythm, Denies lightheadedness, Denies palpitations, Denies dyspnea, Denies dyspnea on exertion and Denies orthopnea Respiratory Denies cough, Denies dyspnea, Denies dyspnea on exertion and Denies wheezing Gastrointestinal Gastrointestinal: Reports abdominal pain, Reports change in bowel habits, Reports diarrhea, Reports nausea and Reports vomiting Genitourinary Denies hematuria, Denies flank pain, Denies urinary incontinence and Denies urinary urgency Musculoskeletal Denies neck pain Integumentary/Breasts Denies pruritus, Denies erythema, Denies rash and Denies wounds Neurologic Denies confusion, Denies loss of vision and Denies weakness Psychiatric Denies anxiety, Denies confusion, Denies depression, Denies homicidal ideation and Denies suicidal ideation Endocrine Denies palpitations Hematologic/Lymphatic Denies easy bruising Allergic/Immunologic Denies wheezing FORMERLY [facility], [facility] Medical History Healthy adult (Acute) Surgical History No pertinent past surgical history (Acute) Social History household members: none Smoking Status: Current every day smoker alcohol intake: current substance use type: does not use Social History household members: none Smoking Status: Current every day smoker alcohol intake: current substance use type: does not use Exam Narrative Exam Narrative: GENERAL: A 28-year-old female appears stated age, in no obvious or significant distress, well-hydrated with moist mucous membranes HEAD: Atraumatic. Normocephalic. No temporal or scalp tenderness. EYES: Pupils equal round and reactive. Extraocular motions intact. No scleral icterus. No injection or drainage. ENT: Nose without bleeding, purulent drainage or septal hematoma. Throat without erythema, tonsillar hypertrophy or exudate. Uvula midline. Airway patent. NECK: Trachea midline. No JVD or lymphadenopathy. Supple, nontender, no meningeal signs. CARDIOVASCULAR: Regular rate and rhythm without murmurs, gallops, or rubs. RESPIRATORY: Clear to auscultation. Breath sounds equal bilaterally. No wheezes, rales, or rhonchi. GASTROINTESTINAL: Abdomen soft, tender in the epigastrium without rebound, nondistended. No hepato-splenomegaly, or palpable masses. No guarding. EXTREMITIES: No clubbing, cyanosis, or edema. No joint tenderness, effusion, or edema noted. BACK: Nontender without deformity or crepitance. No flank tenderness. NEURO: AOx3. SKIN: No rash or erythema. Initial Vital Signs Initial Vital Signs: Vital Signs Temperature 98.3 F 12/20/18 22:01 Pulse Rate 104 H 12/20/18 22:01 Respiratory Rate 18 12/20/18 22:01 Blood Pressure 120/81 12/20/18 22:01 Pulse Oximetry 100 12/20/18 22:01 Course Orders Ordered: ED Orders 12/20/18 22:18 Complete Blood Count AUTO DIFF Stat Comprehensive Metabolic Panel Stat Lipase Stat Discontinued Medications Al Hydrox/Mg Hydrox/Simethicone 20 ml/ Lidocaine HCl 15 ml 0 ml PO NOW ONE Stop: 12/20/18 22:44 Last Admin: 12/20/18 22:46 Dose: 45 ml Sodium Chloride (Normal Saline 0.9%) 1,000 mls @ 150 mls/hr IV CONT LAURITA Last Infusion: 12/20/18 23:31 Dose: 0 mls/hr Admin: 12/20/18 22:22 Dose: 1,000 mls/hr Vital Signs - 8 hr 12/20/18 22:01 12/20/18 23:34 Temperature 98.3 F 98.2 F Pulse Rate 104 H 84 Respiratory Rate 18 16 Blood Pressure 120/81 122/76 Pulse Oximetry 100 99 MDM - Abdominal Pain Lab Data Result diagrams: 12/20/18 22:18 12/20/18 22:18 Lab Results 12/20/18 12/20/18 Range/Units 22:18 22:18 WBC 9.4 (4.5-11.0) X10^3/uL RBC 3.71 L (4.0-5.2) X10^6/uL Hgb 13.4 (12.0-16.0) g/dL Hct 38.2 (36-46) % MCV 103.2 H (80-100) fL MCH 36.1 H (26-34) PG MCHC 35.0 (30-36) % RDW 14.8 (11.6-14.8) % Plt Count 290 (150-400) X10^3/uL Neut % (Auto) 62.1 (50-75) % Lymph % (Auto) 26.6 (25-40) % [place] % (Auto) 9.4 (3-14) % Eos % (Auto) 1.3 L (2-4) % Baso % (Auto) 0.6 (0-2) % Neut # (Auto) 5800 (3726-8844) /uL Lymph # (Auto) 2500 (7359-3916) /uL [place] # (Auto) 900 (0-900) /uL Eos # (Auto) 100 (0-450) /uL Baso # (Auto) 100 (0-100) /uL Sodium 140 (137-145) mmol/L Potassium 3.6 (3.4-5.1) mmol/L Chloride 102 (98-107) mmol/L Carbon Dioxide 25 (22-32) mmol/L BUN 17 (7-17) mg/dL Creatinine 0.60 (0.52-1.04) mg/dL Estimated GFR > 60.0 (>60) mL/min BUN/Creatinine Ratio 28.3 H (6-22) Glucose 130 H (70-100) mg/dL Calcium 10.1 (8.4-10.2) mg/dL Total Bilirubin 0.6 (0.2-1.3) mg/dL AST 18 (14-36) IU/L ALT 34 (9-52) IU/L Alkaline Phosphatase 79 (38-126) U/L Total Protein 7.7 (6.3-8.2) g/dL Albumin 4.7 (3.5-5.0) g/dL Globulin 3.0 (1.7-4.1) g/dL Albumin/Globulin Ratio 1.6 (1.0-2.8) Lipase 73 (23-300) U/L Point of care testing: Urine Dip Bedside Urine Glucose Negative Bedside Urine Bilirubin - Negative Bedside Urine Ketone - Negative Urine Specific [place] 1.030 Bedside Urine Occult Blood - Negative Bedside Urine pH 6.0 Bedside Urine Protein +/- 15 Bedside Urine Urobilinogen - Negative Bedside Urine Nitrite - Negative Bedside Urine Leukocytes - Negative Esterase MDM Narrative Medical decision making narrative: patient with chronic abdominal and digestive problems presents with ongoing pain and nausea in the absence of fever. She has had extensive workups including recent CT scan and labs which suggested colitis. She has seen Gastroenterology and has a scheduled toro endoscopy. Her symptoms are no worse and she is admittedly here because she hoped we could bump up her appointment for endoscopy. Repeat labs show improvement if anything. Patient is given reassurance and return precautions Discharge Plan Departure Patient Disposition: Home Clinical Impression: Colitis Abdominal pain Qualifiers: Abdominal location: epigastric Qualified Code(s): R10.13 - Epigastric pain Discharge Date/Time: 12/20/18 23:35 Interventions: ED Discharge Assessment Last Done: 12/20/18 23:34 Instructions: DI for Colitis Activity Restrictions/Additional Instructions: 1. Drink plenty of fluids with frequent small sips. 2. For the next 24 hours a clear liquid diet is advised. After that please employ a brat diet which would include bananas, rice, apples, toast. 3. Please take medications as directed. 4. Please follow-up with your doctor in the next 1-2 days. Call the office for an appointment. 5. Please return to the emergency Department for any worsening or persistent symptoms, such as increasing pain or fever. Prescriptions: No Action sertraline 100 mg tablet 200 mg PO DAILY RF: 0 acyclovir 400 mg tablet 400 mg PO DAILY Qty: 30 RF: 6 trazodone 50 mg tablet 50 mg PO BEDTIME RF: 0 fluconazole 150 mg tablet 150 mg PO .ONCE RF: 0 valacyclovir 1 gram tablet 1 g PO BID RF: 0 metronidazole 0.75 % gel 5 g Vaginal DAILY RF: 0 spironolactone 100 mg tablet 100 mg PO DAILY RF: 0 oxycodone-acetaminophen 5-325 mg tablet 1 tab PO Q4-6H PRN (Reason: pain) RF: 0 docusate sodium [DOK] 100 mg capsule 100 mg PO BID PRN (Reason: Constipation) RF: 0 buprenorphine-naloxone [Suboxone] 8-2 mg film 1 tab Sublingual DAILY RF: 0 oxycodone-acetaminophen [Percocet] 5-325 mg tablet 1 tab PO Q4-6H PRN (Reason: pain) Qty: 10 RF: 0 ondansetron 4 mg tablet,disintegrating 4 mg PO Q6-8H PRN (Reason: nausea and vomiting) Qty: 10 RF: 0 ibuprofen 800 mg tablet 1 tab PO Q4H PRN (Reason: pain) RF: 0 naloxone 4 mg/actuation spray,non-aerosol 1 spray Intranasal DIRECTED RF: 0 doxycycline hyclate 100 mg capsule 100 mg PO BID Qty: 20 RF: 0 ondansetron 4 mg Tablet,Disintegrating 4 mg Sublingual Q6HR PRN (Reason: Nausea) Qty: 10 RF: 0 meloxicam 15 mg tablet 15 mg PO DAILY PRN (Reason: pain) RF: 0 omeprazole 20 mg capsule,delayed release(DR/EC) 20 mg PO DAILY RF: 0 prazosin 2 mg capsule 2 mg PO BEDTIME RF: 0 Midol 500-25 mg Tablet 1 tab PO PRN PRN (Reason: Cramps) RF: 0 diphenhydramine-acetaminophen [Tylenol PM Extra Strength] 25-500 mg Tablet 1 tab PO BEDTIME PRN (Reason: pain and sleep) RF: 0 alprazolam [Xanax] 1 mg tablet 0.5 mg PO BID-TID PRN (Reason: anxiety) Qty: 10 RF: 0 Referrals: Ning Lopez MD [Physician] - Timothy Polk MD [Primary Care Provider] -
[2018-12-20] MEDS: SODIUM CHLORIDE 0.9% 1,000 ML 1000 ML IV (22:22)
[2018-12-20 22:27] LABS: Add Manual Diff / Slide Review NO; Basophils Absolute Auto 100 /uL (0-100); Basophils Percent Auto 0.6 % (0-2); Eosinophils Absolute Auto 100 /uL (0-450); Eosinophils Percent Auto 1.3 % (2-4); Hematocrit 38.2 % (36-46); Hemoglobin 13.4 g/dL (12.0-16.0); Lymphocytes Absolute Auto 2500 /uL (1100-4500); Lymphocytes Percent Auto 26.6 % (25-40); Mean Corpuscular Hemoglobin 36.1 PG (26-34); Mean Corpuscular Volume 103.2 fL (80-100); Monocytes Absolute Auto 900 /uL (0-900); Monocytes Percent Auto 9.4 % (3-14); Neutrophils Absolute Auto 5800 /uL (1500-7000); Neutrophils Percent Auto 62.1 % (50-75); Platelet Count 290 X10^3/uL (150-400); Red Blood Cell Count 3.71 X10^6/uL (4.0-5.2); Red Cell Distribution Width 14.8 % (11.6-14.8); White Blood Cell Count 9.4 X10^3/uL (4.5-11.0)
[2018-12-20 22:32] LABS: Alanine Aminotransferase 34 IU/L (9-52); Albumin 4.7 g/dL (3.5-5.0); Albumin Globulin Ratio 1.6 (1.0-2.8); Alkaline Phosphatase 79 U/L (38-126); Aspartate Aminotransferase 18 IU/L (14-36); BUN Creatinine Ratio 28.3 (6-22); Bilirubin Total 0.6 mg/dL (0.2-1.3); Blood Urea Nitrogen 17 mg/dL (7-17); Calcium 10.1 mg/dL (8.4-10.2); Carbon Dioxide 25 mmol/L (22-32); Chloride 102 mmol/L (98-107); Estimated Glomerular Filt Rate > 60.0 mL/min (>60); Glucose 130 mg/dL (70-100); HEMOLYSIS < 15 (0-50); Lipase 73 U/L (23-300); Potassium 3.6 mmol/L (3.4-5.1); Sodium 140 mmol/L (137-145); Total Protein 7.7 g/dL (6.3-8.2)
[2018-12-20] MEDS: MAG HYDROX/ALUMINUM/SIMETH SUS 20 ML, LIDOCAINE VISCOUS 2% 15 ML PO (22:46)
[2018-12-20 23:34] VITALS: BP 122/76; PULSE 84; RESP 16; TEMP 36.8; O2SAT 99
== END 2018-12-20 23:35 | disposition home or self-care (01) ==
PROVIDERS: Emergency Provider Emergency Medicine; PCP Family Medicine
DX: K52.9 Noninfective gastroenteritis and colitis, unspecified (principal); R10.13 Epigastric pain
CPT/HCPCS: 36591; 80053; 81003; 83690; 85025; 96360; 99283; 99284

== ENCOUNTER → 2019-01-30 12:43 | Outpatient (CLI) | payer OTHER, MEDICAID, SELFPAY ==
[2019-01-30 13:16] LABS: Alanine Aminotransferase 36 IU/L (9-52); Albumin 5.2 g/dL (3.5-5.0); Albumin Globulin Ratio 1.5 (1.0-2.8); Alkaline Phosphatase 84 U/L (38-126); Aspartate Aminotransferase 26 IU/L (14-36); Bilirubin Total 0.9 mg/dL (0.2-1.3); Blood Urea Nitrogen 15 mg/dL (7-17); Calcium 10.1 mg/dL (8.4-10.2); Carbon Dioxide 25 mmol/L (22-32); Chloride 103 mmol/L (98-107); Estimated Glomerular Filt Rate > 60.0 mL/min (>60); Globulin 3.5 g/dL (1.7-4.1); Glucose 92 mg/dL (70-100); HEMOLYSIS < 15 (0-50); Lipase 54 U/L (23-300); Potassium 4.5 mmol/L (3.4-5.1); Sodium 139 mmol/L (137-145); Total Protein 8.7 g/dL (6.3-8.2)
[2019-01-30 14:03] LABS: C-Reactive Protein Quant < 0.5 mg/dL (<1.0)
[2019-01-30 14:51] LABS: Clostridium Difficile Tox PCR Positive for C. diff
[2019-02-03 13:07] LABS: HSV 1 IgM Screen Positive (Negative); HSV 2 IgM Screen Positive (Negative)
== END ==
PROVIDERS: Specialist; PCP Family Medicine; Visit Provider Internal Medicine Gastroenterology
DX: R10.10 Upper abdominal pain, unspecified (principal); R19.7 Diarrhea, unspecified; N86 Erosion and ectropion of cervix uteri
CPT/HCPCS: 36415; 80053; 83516; 83690; 86140; 86694; 86695; 86696; 87015; 87272; 87329; 87493

== ENCOUNTER → 2019-03-24 16:35 | Outpatient (CLI) | payer OTHER, MEDICAID, SELFPAY ==
[2019-03-24 20:10] LABS: Clostridium Difficile Tox PCR Negative for C. diff
== END ==
PROVIDERS: PCP Family Medicine; Visit Provider Nurse Practitioner Family
DX: R10.10 Upper abdominal pain, unspecified (principal); R19.7 Diarrhea, unspecified
CPT/HCPCS: 87493

== ENCOUNTER → 2019-06-03 13:42 | Outpatient (CLI) | payer OTHER, MEDICAID, SELFPAY ==
--- NOTE | 2019-06-03 | DI.US.S_ITS ---
LIMITED ULTRASOUND OF LEFT BREAST: 06/03/2019 CLINICAL: Nipple discharge, left breast, not bloody. Comparison is made to exam dated: 06/03/2019 [facility]. Color flow and real-time ultrasound of the left breast retroareolar region and left axilla were performed. Cardoso scale images of the real-time examination were reviewed. There is 0.3 x 0.2 x 0.1 cm oval indistinct centrally hyperechoic and peripherally hypoechoic probable intramammary lymph node versus complicated cyst in the left breast at 3:00 retroareolar position, which demonstrates no internal or peripheral vascularity on Doppler ultrasound and is probably benign. There are no suspicious masses or abnormalities to explain patient's reported left nipple discharge. Targeted ultrasound of the left axilla demonstrates no left axillary lymphadenopathy. IMPRESSION: PROBABLY BENIGN There is 0.3 x 0.2 x 0.1 cm probable intramammary lymph node versus complicated cyst in the left breast at 3:00 retroareolar position, which is probably benign. A followup targeted ultrasound in 6 months is recommended to demonstrate stability. There are no suspicious masses or abnormalities to explain patient's reported left nipple discharge. Recommend clinical followup for further evaluation and management. This exam was interpreted at Station ID: [id number]. Electronically Signed By: Naldo Escobar M.D. ecl/:06/03/2019 16:44:36 letter sent: Followup Recommended Ultrasound BI-RADS: 3 Probably benign
--- NOTE | 2019-06-03 13:44 | DI.US.S_ITS ---
LIMITED ULTRASOUND OF RIGHT BREAST AND AXILLA: 06/03/2019 CLINICAL: Palpable right breast lump. Comparison is made to exam dated: 06/03/2019 [facility]. Color flow and real-time ultrasound of the right breast 1 o'clock, and axilla regions were performed. Cardoso scale images of the real-time examination were reviewed. There is a 1.2 x 0.7 x 1.4 cm oval mass with indistinct margin in the right breast at 1:00 position 3 cm from the nipple which demonstrates heterogeneous internal echogenicity, mild posterior acoustic enhancement, internal vascularity on Doppler ultrasound, and internal echogenic foci suggestive of calcifications. This correlates with the site of patient's focal palpable concern. Targeted ultrasound of the right axilla demonstrates no right axillary lymphadenopathy. IMPRESSION: SUSPICIOUS OF MALIGNANCY 1. 1.4 x 1.2 x 0.7 cm mass in the right breast at 1:00 position 3 cm from the nipple likely represents a fibroadenoma and is of low suspicion for malignancy. An ultrasound-guided biopsy is recommended. 2. No ultrasound evidence of right axillary lymphadenopathy. These results and recommendations were discussed with the patient at the time of the exam by Dr. Escobar by telephone. The patient was advised to monitor her breasts and to return sooner for re-evaluation should she feel anything grow or change. This exam was interpreted at Station ID: [id number]. Electronically Signed By: Naldo Escobar M.D. ecl/:06/03/2019 16:49:03 letter sent: Biopsy Required Ultrasound BI-RADS: 4a Suspicious abnormality - low suspicion for malignancy
--- NOTE | 2019-06-03 13:44 | DI.MG.S_ITS ---
BILATERAL DIGITAL DIAGNOSTIC MAMMOGRAM 3D/2D: 06/03/2019 CLINICAL: Baseline exam. Right breast lump. Bilateral nipple discharge. No prior exams were available for comparison. The tissue of both breasts is heterogeneously dense. This may lower the sensitivity of mammography. There is a triangular marker overlying the skin of the upper inner right breast at middle depth at the site of the patient's reported palpable abnormality. There is an approximately 1.5 cm oval circumscribed mass underlying the triangular marker. There is no nipple or retroareolar mass or abnormality bilaterally. No significant masses, calcifications, or other findings are seen in either breast. IMPRESSION: INCOMPLETE: NEEDS ADDITIONAL IMAGING EVALUATION 1) No mammographic abnormality to correlate with the site of the patient's reported focal palpable abnormality. Targeted diagnostic ultrasound recommended for further evaluation, which will be performed immediately following this exam. 2) No mammographic abnormality to correlate with patient's reported bilateral nipple discharge. Targeted diagnostic retroareolar ultrasound recommended for further evaluation, which will be performed immediately following this exam. This exam was interpreted at Station ID: [id number]. NOTE: For mammograms, a report in lay terms will be sent to the patient. Approximately 15% of breast malignancies will not be visualized mammographically. In the management of a palpable breast mass, a negative mammogram must not discourage biopsy of a clinically suspicious lesion. Electronically Signed By: Naldo Escobar M.D. ecl/:06/03/2019 14:54:38 ACR BI-RADS Category 0: Incomplete [id number]
== END ==
DX: R92.8 Other abnormal and inconclusive findings on diagnostic imaging of breast (principal); N63.12 Unspecified lump in the right breast, upper inner quadrant; N64.52 Nipple discharge
CPT/HCPCS: 76642; 77066; G0279

== ENCOUNTER 2019-06-23 09:09 | Emergency (ER) | payer OTHER, MEDICAID, SELFPAY ==
[2019-06-23 09:24] VITALS: BP 146/82; PULSE 88; RESP 18; TEMP 36.7; O2SAT 98
--- NOTE | 2019-06-23 09:40 | ED.ABDPAIN ---
HPI - Abdominal Pain General Chief Complaint: Abdominal Pain Stated Complaint: STOMACH PAIN Time Seen by Provider: 06/23/19 09:35 Source: patient Mode of arrival: ambulatory Limitations: no limitations History of Present Illness HPI narrative: This is a 29-year-old female comes in with complaint of chronic abdominal pain but states she is having new and worsening issues. She states sort of in the right upper quadrant radiates around to her back. Patient states it has been going on mildly for about a week and a half but has been much worse for the last couple days. Patient has not had any fevers. She has not felt well sometimes feel sweaty at night. She has not had any nausea or vomiting. She states she has had diarrhea, she states very dark but not black or bloody. Patient any new urinary frequency urgency or dysuria. She is not having any vaginal bleeding or discharge. Patient has had chronic abdominal issues, she tried to contact her estimator and drafter but can't get in to see any time soon. She has had an EGD and colonoscopy and has been told she has ulcers. She is on omeprazole and another medication that she cannot recall for her stomach. She has not had any prior abdominal surgeries. She has had a LEEP in the past. She has had her tonsils out. She states she is set up to have a breast biopsy for a lump on next week. Related Data Home Medications Medication Instructions Recorded Confirmed acetaminophen-pamabrom [Midol] 1 tab PO PRN PRN 12/07/18 06/03/19 diphenhydramine-acetaminophen 1 tab PO BEDTIME PRN 12/07/18 06/03/19 [Tylenol PM Extra Strength] omeprazole 20 mg PO DAILY 12/07/18 06/03/19 norethindrone-e.estradiol-iron 1 tab PO DAILY 06/23/19 06/23/19 [Blisovi Fe 1.5/30 (28)] Previous Rx's Medication Instructions Recorded alprazolam [Xanax] 0.5 mg PO BID-TID PRN #10 tab 12/07/18 acyclovir 400 mg tablet 400 mg PO DAILY #30 tab 12/09/18 ondansetron 4 mg PO Q6-8H PRN #10 tab 12/10/18 oxycodone 5 mg PO Q4-6H PRN #10 tab 06/23/19 Allergies Allergy/AdvReac Type Severity Reaction Status Date / Time hydrocodone [From Vicodin] Allergy Mild BAD DREAMS Verified 06/23/19 09:27 Review of Systems Review of Systems ROS Unobtainable: All systems reviewed & are unremarkable except as noted in HPI and below Constitutional Constitutional: Denies chills, Denies fever(s), Denies lethargy and Denies weakness Gastrointestinal Gastrointestinal: Reports abdominal pain, Denies melena, Denies hematochezia, Denies change in bowel habits, Denies constipation, Reports diarrhea, Denies nausea and Denies vomiting Genitourinary Genitourinary: Reports as per HPI, Denies abnormal menses, Denies abnormal vaginal bleeding, Denies hematuria, Denies urinary frequency, Denies dysuria, Denies pelvic pain, Denies flank pain, Denies urinary incontinence, Denies urinary hesitancy, Denies urinary urgency, Denies vaginal discharge and Denies vaginal odor Integumentary/Breasts Skin/Breast: Denies rash Neurologic Neurologic: Denies weakness [facility] Surgical History No pertinent past surgical history (Acute) Social History household members: none Smoking Status: Current every day smoker alcohol intake: current substance use type: does not use Social History household members: none Smoking Status: Current every day smoker alcohol intake: current substance use type: does not use Exam Narrative Exam Narrative: GENERAL: Alert and oriented x three, well-nourished, well-appearing female in mild distress. HEENT: Head normocephalic, atraumatic, EOMI, pupils reactive, face symmetric, moist mucous membranes NECK: Supple, full range of motion CARDIOVASCULAR: Regular rate and rhythm without murmurs, rubs or gallops. RESPIRATORY: Breath sounds equal bilaterally, no wheezes rales or rhonchi. ABDOMEN: Soft, mild right upper quadrant tenderness. Normoactive bowel sounds all 4 quadrants. No guarding or rebound, rigidity, no mass : No CVA tenderness EXTREMITIES: Normal range of motion, no clubbing or edema. Neurovascularly intact NEUROLOGICAL: Cranial nerves II through XII grossly intact. Moving all extremities SKIN: Warm, dry, no petechiae, no rashes or lesions. Initial Vital Signs Initial Vital Signs: Vital Signs Temperature 98.0 F 06/23/19 09:24 Pulse Rate 88 06/23/19 09:24 Respiratory Rate 18 06/23/19 09:24 Blood Pressure 146/82 H 06/23/19 09:24 Pulse Oximetry 98 06/23/19 09:24 Course Orders Ordered: Discontinued Medications Ketorolac Tromethamine (Toradol) 30 mg IV NOW ONE Stop: 06/23/19 09:53 Last Admin: 06/23/19 10:00 Dose: 30 mg Documented by: GENE Morphine Sulfate (Morphine) 4 mg IV NOW ONE Stop: 06/23/19 12:15 Last Admin: 06/23/19 12:21 Dose: 4 mg Documented by: GENE Morphine Sulfate (Morphine) 4 mg IV NOW ONE Stop: 06/23/19 13:53 Last Admin: 06/23/19 14:01 Dose: 4 mg Documented by: NICKO Pantoprazole Sodium (Protonix) 40 mg IV NOW ONE Stop: 06/23/19 09:53 Last Admin: 06/23/19 10:00 Dose: 40 mg Documented by: GENE Vital Signs Vital signs: Vital Signs - 8 hr 06/23/19 11:10 06/23/19 11:20 06/23/19 12:20 Pulse Rate 100 H 66 71 Respiratory Rate 15 16 15 Blood Pressure Blood Pressure [Left Arm] 108/76 108/76 111/74 Pulse Oximetry 98 100 98 06/23/19 14:28 Pulse Rate 67 Respiratory Rate 18 Blood Pressure 131/79 Blood Pressure [Left Arm] Pulse Oximetry 99 MDM - Abdominal Pain Lab Data Attestation: I reviewed the patient's lab results. Result diagrams: 06/23/19 09:39 06/23/19 09:39 Labs: Lab Results 06/23/19 06/23/19 06/23/19 Range/Units 09:39 09:39 09:39 WBC 8.2 (4.5-11.0) X10^3/uL RBC 3.83 L (4.0-5.2) X10^6/uL Hgb 14.3 (12.0-16.0) g/dL Hct 40.0 (36-46) % MCV 104.3 H (80-100) fL MCH 37.5 H (26-34) PG MCHC 35.9 (30-36) % RDW 11.2 L (11.6-14.8) % Plt Count 239 (150-400) X10^3/uL Neut % (Auto) 63.6 (50-75) % Lymph % (Auto) 25.7 (25-40) % [place] % (Auto) 7.7 (3-14) % Eos % (Auto) 2.4 (2-4) % Baso % (Auto) 0.6 (0-2) % Neut # (Auto) 5200 (5777-6614) /uL Lymph # (Auto) 2100 (9416-4323) /uL [place] # (Auto) 600 (0-900) /uL Eos # (Auto) 200 (0-450) /uL Baso # (Auto) 100 (0-100) /uL PT 10.1 (10.1-12.7) SECONDS INR 0.9 (0.9-1.3) APTT 27 (26.4-36.2) SECONDS Sodium 140 (137-145) mmol/L Potassium 4.1 (3.4-5.1) mmol/L Chloride 105 (98-107) mmol/L Carbon Dioxide 25 (22-32) mmol/L BUN 18 H (7-17) mg/dL Creatinine 0.60 (0.52-1.04) mg/dL Estimated GFR > 60.0 (>60) mL/min BUN/Creatinine Ratio 30.0 H (6-22) Glucose 106 H (70-100) mg/dL Calcium 9.8 (8.4-10.2) mg/dL Total Bilirubin 0.7 (0.2-1.3) mg/dL AST 24 (14-36) IU/L ALT 22 (9-52) IU/L Alkaline Phosphatase 80 (38-126) U/L Total Protein 7.3 (6.3-8.2) g/dL Albumin 4.5 (3.5-5.0) g/dL Globulin 2.8 (1.7-4.1) g/dL Albumin/Globulin Ratio 1.6 (1.0-2.8) Lipase 68 (23-300) U/L Point of care testing: Point of Care Testing Test Results Negative Urine Dip Bedside Urine Glucose Negative Bedside Urine Bilirubin - Negative Bedside Urine Ketone - Negative Urine Specific [place] 1.025 Bedside Urine Occult Blood - Negative Bedside Urine pH 5.5 Bedside Urine Protein - Negative Bedside Urine Urobilinogen - Negative Bedside Urine Nitrite - Negative Bedside Urine Leukocytes - Negative Esterase Imaging Data US - abdomen: Radiologist's impression: [address] [address] Ultrasound Report Signed Patient: Radha Kaba MMR#: [id number] : 1990Acct:[id number] Age/Sex: te of Service: 06/23/19 Loc: ED Accession Number: [id number] Procedure: US abdomen complete Ordering Provider: Noemi Paul D.O. PROCEDURE: US ABDOMEN COMPLETE INDICATIONS: RUQ/BACK PAIN, HX OF CHRONIC ABD PAIN TECHNIQUE: Real-time scanning was performed of the abdominal and retroperitoneal organs, with image documentation. COMPARISON: [facility], US, US ABDOMEN COMPLETE, 12/10/2018, 13:15. FINDINGS: Liver: Liver is normal in size and homogeneous in echotexture. Gallbladder: There is mild persistent thickening of the gallbladder wall measuring up to 3 mm in thickness. Small area of more focal thickening is also noted. No gallstones. No pericholecystic fluid. There is a positive sonographic Downing's sign per feather shaper's report. Biliary ducts: Intrahepatic bile ducts are non-dilated. Extrahepatic bile duct caliber measures 4 mm. Normal is 6-7 mm or less in diameter, or 10 mm or less post-cholecystectomy. Pancreas: Visualized portions of the pancreas are sonographically normal. Spleen: Spleen is normal in size and homogeneous in echotexture. Kidneys: Kidneys are normal in size and echotexture. Right kidney measures 10.9 cm long; left kidney measures 10.9 cm long. No hydronephrosis or nephrolithiasis. No solid masses. Aorta: Visualized aorta is normal in caliber at less than 3 cm. Iliacs: Proximal common iliac arteries are normal in caliber at less than 2.5 cm. IVC: Intrahepatic inferior vena cava is patent. Miscellaneous: There is small amount of free fluid seen adjacent to the liver. IMPRESSION: 1. Mild gallbladder wall thickening and positive sonographic Downing's sign per feather shaper's report. No cholelithiasis seen. Findings may represent acute acalculous cholecystitis. 2. Minimal amount of fluid seen adjacent to the liver, likely reactive in etiology. Dictated by: Davis Woodard M.D. on 06/23/2019 at 11:25 Approved by: Davis Woodard M.D. on 06/23/2019 at 11:31 MDM Narrative Medical decision making narrative: Patient comes in she has right upper quadrant pain a little bit of mild persistent thickening of the gallbladder wall, small area of focal thickening noted. No gallstones. Patient has some fluid but no other acute changes. Patient's lab work does not show any acute changes suggesting active infection, she has been afebrile. I spoke with General surgery who recommend HIDA scan. I spoke with the patient she has actually had HIDA scan as well as a gastric emptying study. She is set up for an appointment on the with General surgery. She will get these results and go follow up with them. She also has follow-up with Gastroenterology. We will do a short course medication for pain including Tylenol. Patient has known ulcers from EGD so will hold on ibuprofen. Discharge Plan Departure Patient Disposition: Home Clinical Impression: Abdominal pain Discharge Date/Time: 06/23/19 14:30 Instructions: DI for HIDA Scan Activity Restrictions/Additional Instructions: Follow-up with General surgery, you have an appointment on 06/30 at 2:[address] Lee at the general surgery office at [facility]. They will likely wish to order a HIDA scan. Take tylenol up to 1000mg every 8 hours as needed for pain. Continue pain medication as prescribed, this medication can make you sleepy do not drive, perform hazardous activities or make any major decisions while taking it. You may also take ibuprofen up to 800 mg every 8 hours as needed for pain with this medication if you can tolerate with her history of ulcers. Return to the emergency department for fevers greater 100.4 F, persistent vomiting, black or bloody stools, new or changing pain, new shortness of breath, lightheadedness, passing out or other new or concerning symptoms. Prescriptions: New oxycodone 5 mg tablet 5 mg PO Q4-6H PRN (Reason: pain) Qty: 10 RF: 0 No Action acyclovir 400 mg tablet 400 mg PO DAILY Qty: 30 RF: 6 ondansetron 4 mg tablet,disintegrating 4 mg PO Q6-8H PRN (Reason: nausea and vomiting) Qty: 10 RF: 0 omeprazole 20 mg capsule,delayed release(DR/EC) 20 mg PO DAILY RF: 0 Midol 500-25 mg Tablet 1 tab PO PRN PRN (Reason: Cramps) RF: 0 diphenhydramine-acetaminophen [Tylenol PM Extra Strength] 25-500 mg Tablet 1 tab PO BEDTIME PRN (Reason: pain and sleep) RF: 0 alprazolam [Xanax] 1 mg tablet 0.5 mg PO BID-TID PRN (Reason: anxiety) Qty: 10 RF: 0 Blisovi Fe 1.5/30 (28) 1.5 mg-30 mcg (21)/75 mg (7) tablet 1 tab PO DAILY RF: 0 Referrals: Edward Lee MD [Physician] -
--- NOTE | 2019-06-23 09:52 | DI.US.S_ITS ---
PROCEDURE: US ABDOMEN COMPLETE INDICATIONS: RUQ/BACK PAIN, HX OF CHRONIC ABD PAIN TECHNIQUE: Real-time scanning was performed of the abdominal and retroperitoneal organs, with image documentation. COMPARISON: [facility], US, US ABDOMEN COMPLETE, 12/10/2018, 13:15. FINDINGS: Liver: Liver is normal in size and homogeneous in echotexture. Gallbladder: There is mild persistent thickening of the gallbladder wall measuring up to 3 mm in thickness. Small area of more focal thickening is also noted. No gallstones. No pericholecystic fluid. There is a positive sonographic Downing's sign per respiratory therapy instructor's report. Biliary ducts: Intrahepatic bile ducts are non-dilated. Extrahepatic bile duct caliber measures 4 mm. Normal is 6-7 mm or less in diameter, or 10 mm or less post-cholecystectomy. Pancreas: Visualized portions of the pancreas are sonographically normal. Spleen: Spleen is normal in size and homogeneous in echotexture. Kidneys: Kidneys are normal in size and echotexture. Right kidney measures 10.9 cm long; left kidney measures 10.9 cm long. No hydronephrosis or nephrolithiasis. No solid masses. Aorta: Visualized aorta is normal in caliber at less than 3 cm. Iliacs: Proximal common iliac arteries are normal in caliber at less than 2.5 cm. IVC: Intrahepatic inferior vena cava is patent. Miscellaneous: There is small amount of free fluid seen adjacent to the liver. IMPRESSION: 1. Mild gallbladder wall thickening and positive sonographic Downing's sign per respiratory therapy instructor's report. No cholelithiasis seen. Findings may represent acute acalculous cholecystitis. 2. Minimal amount of fluid seen adjacent to the liver, likely reactive in etiology. Dictated by: Davis Woodard M.D. on 06/23/2019 at 11:25 Approved by: Davis Woodard M.D. on 06/23/2019 at 11:31
[2019-06-23 09:54] LABS: Add Manual Diff / Slide Review NO; Basophils Absolute Auto 100 /uL (0-100); Basophils Percent Auto 0.6 % (0-2); Eosinophils Absolute Auto 200 /uL (0-450); Eosinophils Percent Auto 2.4 % (2-4); Hemoglobin 14.3 g/dL (12.0-16.0); Lymphocytes Absolute Auto 2100 /uL (1100-4500); Lymphocytes Percent Auto 25.7 % (25-40); Mean Corpuscular HGB Conc 35.9 % (30-36); Mean Corpuscular Hemoglobin 37.5 PG (26-34); Mean Corpuscular Volume 104.3 fL (80-100); Monocytes Absolute Auto 600 /uL (0-900); Monocytes Percent Auto 7.7 % (3-14); Neutrophils Absolute Auto 5200 /uL (1500-7000); Neutrophils Percent Auto 63.6 % (50-75); Platelet Count 239 X10^3/uL (150-400); Red Blood Cell Count 3.83 X10^6/uL (4.0-5.2); Red Cell Distribution Width 11.2 % (11.6-14.8); White Blood Cell Count 8.2 X10^3/uL (4.5-11.0)
[2019-06-23 09:56] LABS: INR 0.9 (0.9-1.3); Prothrombin Time 10.1 SECONDS (10.1-12.7)
[2019-06-23 09:59] LABS: PTT Partial Thromboplastin Tim 27 SECONDS (26.4-36.2)
[2019-06-23] MEDS: KETOROLAC 60 MG/2 ML VIAL 30 MG IV (10:00)
[2019-06-23] MEDS: PANTOPRAZOLE 40 MG VIAL IV (10:00)
[2019-06-23 10:06] LABS: Alanine Aminotransferase 22 IU/L (9-52); Albumin 4.5 g/dL (3.5-5.0); Albumin Globulin Ratio 1.6 (1.0-2.8); Alkaline Phosphatase 80 U/L (38-126); Aspartate Aminotransferase 24 IU/L (14-36); Bilirubin Total 0.7 mg/dL (0.2-1.3); Blood Urea Nitrogen 18 mg/dL (7-17); Calcium 9.8 mg/dL (8.4-10.2); Carbon Dioxide 25 mmol/L (22-32); Chloride 105 mmol/L (98-107); Estimated Glomerular Filt Rate > 60.0 mL/min (>60); Globulin 2.8 g/dL (1.7-4.1); Glucose 106 mg/dL (70-100); HEMOLYSIS < 15 (0-50); Lipase 68 U/L (23-300); Potassium 4.1 mmol/L (3.4-5.1); Sodium 140 mmol/L (137-145); Total Protein 7.3 g/dL (6.3-8.2)
[2019-06-23 11:10] VITALS: BP 108/76; PULSE 100; RESP 15; O2SAT 98
[2019-06-23 11:20] VITALS: BP 108/76; PULSE 66; RESP 16; O2SAT 100
[2019-06-23 12:20] VITALS: BP 111/74; PULSE 71; RESP 15; O2SAT 98
[2019-06-23] MEDS: MORPHINE 4 MG/ML INJ IV ×2 (12:21→14:01)
[2019-06-23 14:28] VITALS: BP 131/79; PULSE 67; RESP 18; O2SAT 99
== END 2019-06-23 14:30 | disposition home or self-care (01) ==
PROVIDERS: Emergency Provider Emergency Medicine
DX: R10.9 Unspecified abdominal pain (principal)
CPT/HCPCS: 36591; 76700; 80053; 81003; 81025; 83690; 85025; 85610; 85730; 96374; 96375; 96376; 99283; 99284; C9113; J1885; J2270

== ENCOUNTER → 2019-06-25 14:18 | Outpatient (CLI) | payer OTHER, MEDICAID, SELFPAY ==
[2019-06-23 13:50] VITALS: BMI 20.8
--- NOTE | 2019-06-25 | DI.MG.S_ITS ---
UNILATERAL RIGHT DIGITAL DIAGNOSTIC MAMMOGRAM POST-NEEDLE BIOPSY: 06/25/2019 CLINICAL: Right breast mass. Comparison is made to exams dated: 06/25/2019 ultrasound biopsy and 06/03/2019 mammogram - [facility]. The tissue of right breast is heterogeneously dense. This may lower the sensitivity of mammography. There is a marker clip in the appropriate position in the right breast at 1 o'clock anterior depth 3 cm from the nipple. IMPRESSION: POST PROCEDURE MAMMOGRAM FOR MARKER PLACEMENT There was a successful marker clip placement in the right breast anterior depth. This exam was interpreted at Station ID: [id number]. NOTE: For mammograms, a report in lay terms will be sent to the patient. Approximately 15% of breast malignancies will not be visualized mammographically. In the management of a palpable breast mass, a negative mammogram must not discourage biopsy of a clinically suspicious lesion. Electronically Signed By: Davis Woodard M.D. aty/:06/25/2019 16:10:54 ACR BI-RADS Category Post-procedure mammogram for marker placement
--- NOTE | 2019-06-25 | PATH_ITS ---
[facility] Accession Number: [id number] . 01 Material submitted: . breast - RIGHT BREAST MASS . 01 Diagnosis: A. Right Breast, Mass, Biopsy: Fibroadenoma. MNT/06/28/2019 . 01 Electronically signed: . Saira Cavanaugh MD, Pathologist NPI- [id number] . 01 Gross description: . Received in formalin, labeled RT breast BX, are multiple fragments of pradhan-white and pale yellow fibrofatty tissue (2.8 x 1.4 x 0.2 cm in aggregate). Approximate total fixation time in formalin-52 hours 30 minutes. Filtered and entirely submitted in cassette A1. ([id number]) /MRV . 01 Pathologist provided ICD-10: D24.1 . 01 CPT . 895743 Performed at: 01 [facility] [address] [place] [id number] MD Houston Mann MD Phone: [phone]
--- NOTE | 2019-06-25 14:21 | DI.US.S_ITS ---
ULTRASOUND GUIDED BIOPSY RIGHT BREAST USING VACUUM DEVICE WITH MARKING DEVICE INSERTED AND POST MAMMOGRAPHIC IMAGIN06/25/2019 CLINICAL: Right breast mass. PATIENT CONSENT: Risks (minor bleeding, infection, vasovagal reaction and repeat procedure), benefits and alternatives were explained to the patient and written informed consent was obtained. Correlation is made to exams dated: 06/03/2019 ultrasound and 06/03/2019 mammogram [facility]. An ultrasound guided biopsy using real-time ultrasound was performed for the 1.4 cm x 0.7 cm x 1.4 cm oval mass located in the right breast at 1 o'clock middle depth 3 cm from the nipple. This was described on the previous mammography and ultrasound reports. The skin was prepped in the usual manner. Local anesthetic was administered to the access site. A skin luis antonio was made in the breast. The abnormality was approached from the lateral aspect. A 13 gauge biopsy needle was placed adjacent to the abnormality under ultrasound guidance. Once the needle was documented to be in the correct location, seven specimens were obtained using the Mammotome biopsy system. A clip was inserted into the biopsy cavity. A sterile dressing was applied to the access site. Post procedure mammographic imaging demonstrates the location device at the targeted area. The specimens were sent to the laboratory for pathological analysis. IMPRESSION: ULTRASOUND GUIDED BIOPSY BENIGN Ultrasound guided biopsy of the 1.4 cm x 0.7 cm x 1.4 cm mass in the right breast at 1 o'clock middle depth 3 cm from the nipple was successful. Pathology indicates benign fibroadenoma (FA). Pathology results are concordant with imaging findings. A follow-up left ultrasound in 6 months is recommended to demonstrate stability of a probably benign finding in the retroareolar region of the left breast 3:00 position. No further imaging follow up for right breast unless any clinical suspicious findings. This exam was interpreted at Station ID: [id number]. Davis Woodard M.D. aty/:06/29/2019 19:01:29
== END ==
DX: D24.1 Benign neoplasm of right breast (principal)
CPT/HCPCS: 19083; 77065

== ENCOUNTER 2019-07-05 11:40 | Day surgery (SDC) | payer OTHER, MEDICAID, SELFPAY ==
[2019-06-23 13:50] VITALS: BMI 20.8
[2019-07-02 07:28] VITALS: BMI 26.4
[2019-07-05] VITALS (10 sets, daily range): BP systolic 92–124; BP diastolic 47–88; PULSE 69–91; RESP 11–24; TEMP 36.2–37.1; O2SAT 92–98; BMI 25.8
--- NOTE | 2019-07-05 | PATH_ITS ---
[facility] Accession Number: [id number] . 01 Material submitted: . gallbladder - GALLBLADDER . 02 Diagnosis: Gallbladder, Cholecystectomy: Chronic cholecystitis. No calculi identified. Negative for dysplasia and malignancy. [facility] 07/07/2019 1345 Local . 02 Electronically signed: . Brittani Villalta MD, Pathologist NPI- [id number] . 01 Gross description: . Received in formalin, labeled gallbladder, is an intact gallbladder (length-7.8 cm, diameter-2.7 cm) with green smooth shiny serosa and a patent cystic duct. A possible lymph node (0.6 x 0.3 x 0.2 cm) is identified. The lumen contains dark green viscous bile. No calculi are present. The mucosa is dark green smooth and flat. The wall is up to 0.1 cm thick. No nodules, masses or lesions are identified. Section code: (A1) cystic duct resection margin and two serial sections from the body; (A2) two longitudinal sections from the fundus; (A3) one intact lymph node. ([id number]) /MRV 07/06/2019 1009 Local . 02 Pathologist provided ICD-10: K81.1 . 02 CPT . 871157 Performed at: 01 [facility] [address], [place], [place] [id number] MD Houston Mann MD Phone: [phone] Performed at: 02 [facility] [address] [place], [place] [id number] MD Brittani Villalta MD Phone: [phone]
[2019-07-05] MEDS: LACTATED RINGERS 1,000 ML 100 ML IV (13:00)
--- NOTE | 2019-07-05 13:07 | PM.PREOP ---
Pre-operative Note Interval Note History & Physical reviewed/Exam performed by Physician: Yes Changes to H&P: No
[2019-07-05] MEDS: CEFAZOLIN 2 GM/100 ML FROZ.PIGGY IV (13:23)
--- NOTE | 2019-07-05 13:45 | SUR.OPER ---
Supine on padded OR bed, head on pillow, safety belt at thigh, left arm padded and tucked at side. Right arm secured on padded arm oard <90 degrees abduction. Legs uncrossed. Padded footboard in place. Tape over blanket to secure lower legs.
[2019-07-05] MEDS: BUPIVACAINE 0.5% (PF) VIAL 30 ML INJ (13:56)
--- NOTE | 2019-07-05 14:27 | PM.OP.1 ---
Operative Date/Time/Diagnoses Date of procedure: 07/05/19 Time of procedure: 14:27 Pre-op diagnosis: biliary dyskinesia Post-op diagnosis: same Procedure & Clinicians Procedure: Laparoscopic cholecystectomy Same procedure as scheduled: Yes Indications: 29-year-old female with biliary dyskinesia presents for laparoscopic cholecystectomy. She underwent a workup for her abdominal pain which include a HIDA scan during which the infusion of CCK she had reproducible right upper quadrant pain similar to the pain she has been experiencing after meals. Surgeon: Edward Lee Click Yes if Unassisted: Yes Anesthesia Type: General Operative Notes Findings: Normal appearing gallbladder Specimen(s): other (Gallbladder) Estimated Blood Loss (mL): 5 Procedure in detail: The patient was brought to the operating room placed supine on the table. Bilateral lower extremity compression devices were applied. General anesthesia was induced and they were intubated with an endotracheal tube. They received 2 g of Ancef prior to skin incision. A time-out was performed to ensure the correct patient procedure necessary equipment within the operating room. They were then prepped and draped in the usual sterile fashion. Infraumbilical incision was made the umbilical stalk was grasped and elevated and the fascia was sharply incised. The abdomen was entered atraumatically. A 10 mm trocar was then placed into the abdomen. Pneumoperitoneum was established. The laparoscopic camera was inserted into the abdomen inspection was made that demonstrated no evidence of injury upon entry. We then placed our working ports the 1st 5 mm port high in the epigastrium and then 2 in the right upper quadrant. The gallbladder was grasped and retracted over the liver and grasped laterally by the fundus. The triangle of Calot was exposed. The triangle of calot was then skeletonized using hook electrocautery and demonstrated the cystic duct clearly entering the gallbladder the cystic artery and the liver and in the background. With the critical view of safety established the cystic duct was clipped twice proximally and once distally and then sharply divided and the cystic artery was taken in the same fashion. Next the gallbladder was removed from the liver bed using electro cautery. The liver bed was then inspected for hemostasis and this was achieved. The abdomen was irrigated with sterile saline and inspection was made that showed the clips in good position. The specimen was removed using Endo-Catch. The abdomen was desufflated. The the fascia of the umbilicus was closed with 0 Vicryl in a [id number] fashion. Skin incisions were irrigated and closed with 4-0 Monocryl. The wounds were sealed with Dermabond. Patient emerged from general anesthesia was extubated and transferred to the postoperative care unit missed stable condition. The sponge and instrument count at the end of the operation was correct. Complications: none Post-operative Condition: stable Disposition: same day surgery
[2019-07-05] MEDS: HYDROMORPHONE 0.5 MG INJ IV (14:51)
[2019-07-05] MEDS: LORazepam 2 MG/ML INJ 0.25 MG IV ×2 (14:55→15:22)
[2019-07-05] MEDS: HYDROMORPHONE 2 MG INJ 0.5 MG IV ×2 (15:08→15:22)
[2019-07-05] MEDS: OXYCODONE/ACETAMINOPHEN 5/325 TABLET 1 TAB PO (15:26)
== END 2019-07-05 16:25 | disposition home or self-care (01) ==
PROVIDERS: Visit Provider Surgery
PROC: 0FT44ZZ Resection of Gallbladder, Percutaneous Endoscopic Approach (ICD-10-PCS; CPT 47562; principal; 2019-07-05 13:15)
DX: K81.1 Chronic cholecystitis (principal)
CPT/HCPCS: 47562; J0690; J1100; J1170; J2060; J2250; J2405; J2704; J3010

== ENCOUNTER → 2019-09-20 14:57 | Outpatient (CLI) | payer OTHER, MEDICAID, SELFPAY ==
[2019-06-23 13:50] VITALS: BMI 20.8
== END ==
PROVIDERS: PCP Internal Medicine Gastroenterology; Visit Provider Physician Assistant
DX: J02.9 Acute pharyngitis, unspecified (principal)
CPT/HCPCS: 87070; 87077; 87185

== ENCOUNTER → 2019-12-06 12:11 | Outpatient (CLI) | payer OTHER, MEDICAID, SELFPAY ==
[2019-06-23 13:50] VITALS: BMI 20.8
--- NOTE | 2019-12-06 12:16 | DI.RAD.S_ITS ---
PROCEDURE: XR LUMBAR SPINE 2-3V INDICATIONS: Persistent lower back pain TECHNIQUE: 3 views of the lumbar spine were acquired. COMPARISON: [facility], , L-SPINE 2-3 VIEWS, 08/11/2013, 14:48. FINDINGS: Bones: No fracture or focal osseous destruction. Multilevel degenerative endplate sclerosis and spurring. Diffuse facet arthropathy. Straightening of the normal lordotic curvature. Mild narrowing of the L5-S1 disc space which appears grossly unchanged. Minimal bilateral SI joint spurring. Soft tissues: Overlying bowel gas pattern is normal. No suspicious soft tissue calcifications. IMPRESSION: Mild L5-S1 disc degeneration, grossly unchanged Straightening of the normal lordotic curvature. Dictated by: Charles eNil M.D. on 12/06/2019 at 13:42 Approved by: Charles Neil M.D. on 12/06/2019 at 13:44
== END ==
PROVIDERS: PCP Family Medicine; Referring Provider Family Medicine; Visit Provider Family Medicine
DX: M54.5 Low back pain (principal); M51.36 Other intervertebral disc degeneration, lumbar region
CPT/HCPCS: 72100